=== PATIENT | male | born 1975 | race Caucasian/White ===

== ENCOUNTER 2019-11-28 11:25 | Inpatient (IN) | payer SELFPAY ==
[~2019-11-28] VITALS: Ht 182.9 cm; Wt 103.0 kg
[2019-11-28] MEDS ORDERED: ONDANSETRON PF 4 MG/2 ML VIAL. ONE (11:35)
[2019-11-28] MEDS ORDERED: IV NORMAL SALINE 1000ML BAG 1,000 ML IV ONE (11:45)
[2019-11-28 11:48] LABS: BASO # 0.1 x10^3/uL (0.0-0.2); BASO % 0 % (0-3); EOS # 0.2 x10^3/uL (0.0-0.7); EOS % 1 % (0-3); HEMATOCRIT 50.9 % (39.0-53.0); HEMOGLOBIN 17.1 g/dL (13.0-17.5); LYMPH # 4.7 x10^3/uL (1.0-4.8); LYMPH % 24 % (24-48); MEAN CORPUSCULAR HEMOGLOBIN 30 pg (25-35); MEAN CORPUSCULAR HGB CONC 34 g/dL (31-37); MEAN CORPUSCULAR VOLUME 90 fL (79-100); MONO # 1.4 x10^3/uL (0.0-1.1); MONO % 7 % (0-9); NEUT # 13.3 x10^3/uL (1.8-7.7); NEUT % 68 % (31-73); PLATELET COUNT 442 x10^3/uL (140-400); RED BLOOD COUNT 5.67 x10^6/uL (4.30-5.70); RED CELL DISTRIBUTION WIDTH 12.7 % (11.5-14.5); WHITE BLOOD COUNT 19.7 x10^3/uL (4.0-11.0)
[2019-11-28 12:00] LABS: PROTHROMBIN TIME PATIENT 13.9 SEC (11.7-14.0)
[2019-11-28] MEDS ORDERED: ONDANSETRON PF 4 MG/2 ML VIAL. IV ONE (12:00)
[2019-11-28 12:13] LABS: ANION GAP 27 (6-14); BLOOD UREA NITROGEN 22 mg/dL (8-26); BUN/CREATININE RATIO 14 (6-20); CALCIUM 9.5 mg/dL (8.5-10.1); CARBON DIOXIDE 14 mmol/L (21-32); CHLORIDE 96 mmol/L (98-107); CREATININE 1.6 mg/dL (0.7-1.3); GFR 47.6; GLUCOSE 193 mg/dL (70-99); POTASSIUM 3.8 mmol/L (3.5-5.1); SODIUM 137 mmol/L (136-145)
[2019-11-28] MEDS ORDERED: fentaNYL PF VIAL 100 MCG/2 ML VIAL IV ONE (12:15)
[2019-11-28 12:19] LABS: ALBUMIN 4.3 g/dL (3.4-5.0); ALBUMIN/GLOBULIN RATIO 1.1 (1.0-1.7); ALK PHOS 92 U/L (46-116); ALT (SGPT) 37 U/L (16-63); AST (SGOT) 26 U/L (15-37); CREATINE KINASE 242 U/L (39-308); MAGNESIUM 2.4 mg/dL (1.8-2.4); PHENY 0.9 mcg/mL (10.0-20.0); TOTAL BILIRUBIN 0.7 mg/dL (0.2-1.0); TOTAL PROTEIN 8.3 g/dL (6.4-8.2)
--- NOTE | 2019-11-28 12:39 | RAD ---
EXAM: Head CT without contrast; maxillofacial bone CT without contrast; cervical spine CT without contrast. HISTORY: Trauma. TECHNIQUE: Computed tomographic images of the head, maxillofacial bones and cervical spine were obtained without contrast. *One or more of the following individualized dose reduction techniques were utilized for this examination: 1. Automated exposure control. 2. Adjustment of the mA and/or kV according to patient size. 3. Use of iterative reconstruction technique. COMPARISON: None. FINDINGS: Head: There is no acute intracranial hemorrhage. There is no mass effect or midline shift. There is no hydrocephalus. The rodriguze-white matter differential pattern is intact. The mastoid air cells are clear. No calvarial lesion is seen. Maxillofacial bones: No fracture is seen. There is minimal maxillary sinus mucosal thickening. The nasal septum is midline. The ostiomeatal units are patent. The temporomandibular joints are intact. The orbits are unremarkable. Cervical spine: There is cervical curvature likely due to thoracic scoliosis. There is no significant listhesis. There is mild multilevel endplate remodeling and slight disc space narrowing at the mid and lower cervical levels. There is facet arthropathy at multiple levels. There is no fracture. There is mild right foraminal stenosis at C3-C4 and C4-C5. There is moderate to severe right foraminal stenosis at C5-C6. IMPRESSION: 1. No evidence of acute intracranial, maxillofacial bone or cervical spine trauma. 2. Multilevel degenerative change involving the cervical spine, resulting in stenosis as described above. Electronically signed by: Flor Dasilva MD (11/28/2019 12:36 PM) [facility]
[2019-11-28 13:21] LABS: % BANDS 2 % (0-9); % LYMPHS 22 % (24-48); % MONOS 5 % (0-10); % SEGS 71 % (35-66)
[2019-11-28 13:22] LABS: PLT ESTIMATE ADEQUATE (ADEQUATE)
--- NOTE | 2019-11-28 13:24 | RAD ---
SHOULDER 2+V RIGHT DATE: 11/28/2019 12:02 PM INDICATION: Trauma, shoulder pain COMPARISON: None. FINDINGS: Bones: Ossific fragment along the inferior margin of the glenoid, possibly a bony Bankart injury. Joints: Glenohumeral joint is congruent. Acromioclavicular joint is congruent. The acromiohumeral distance is not narrowed. Miscellaneous: No abnormal soft tissue calcifications in the shoulder. IMPRESSION: Ossific fragment along the inferior margin of the glenoid, possibly a bony Bankart injury. Glenohumeral joint is congruent. Electronically signed by: Kenan Shetty MD (11/28/2019 1:21 PM) [facility]
[2019-11-28] MEDS ORDERED: NORMAL SALINE IV ONE (14:00)
[2019-11-28] MEDS ORDERED: FOSPHENYTOIN IV ONE (14:00)
[2019-11-28 14:04] LABS: COLOR,URINE YELLOW
[2019-11-28 14:05] LABS: BILIRUBIN,URINE NEGATIVE (NEG); CLARITY,URINE HAZY; NITRITE,URINE NEGATIVE (NEG); PH,URINE 5.5 (<5.0-8.0); PROTEIN,URINE 30 mg/dL (NEG-TRACE); UROBILINOGEN,URINE 0.2 mg/dL (0.2 mg/dL)
[2019-11-28 14:06] LABS: BACTERIA,URINE 0 /HPF (0-FEW); RBC,URINE OCC /HPF (0-2); WBC,URINE OCC /HPF (0-4)
[2019-11-28 14:07] LABS: HYALINE CASTS, URINE OCCASIONAL /HPF
[2019-11-28] MEDS ORDERED: ACETAMINOPHEN 325 MG TABLET. PO PRN (14:15)
[2019-11-28] MEDS ORDERED: MULTIVIT INFUSN,ADULT 4,VIT K 10 ML, FOLIC ACID INJ 1 MG in IV NORMAL SALINE 1000ML BAG... IV ONE (14:15)
[2019-11-28] MEDS ORDERED: DOCUSATE SODIUM 100 MG CAPSULE. PO PRN (14:15)
[2019-11-28] MEDS ORDERED: guaiFENesin ORAL 200 MG/10 ML LIQUID. PO PRN (14:15)
[2019-11-28] MEDS ORDERED: ZOLPIDEM 5 MG TABLET. PO PRN (14:15)
[2019-11-28] MEDS ORDERED: ONDANSETRON PF 4 MG/2 ML VIAL. IV PRN (14:15)
[2019-11-28] MEDS ORDERED: ALBUTEROL SULFATE 2.5 MG/3 ML NEBU. NEB PRN (14:15)
[2019-11-28] MEDS ORDERED: levETIRAcetam 1,000 MG in IV DEXTROSE 5% 100ML 100 ML IV ONE (14:15)
[2019-11-28] MEDS ORDERED: THIAMINE 100 MG TABLET. PO ONE (14:15)
[2019-11-28] MEDS ORDERED: cloNIDine HCL 0.1 MG TABLET PO PRN (14:15)
--- NOTE | 2019-11-28 14:53 | PHYS DOC ---
Past Medical History Past Medical History: Seizure Past Surgical History: No Surgical History Additional Past Surgical Histo: UNKNOWN Smoking Status: Unknown if ever smoked Alcohol Use: None Additional Information: UNKNOWN Social History Narrative: UNKNOWN General Adult EDM: Chief Complaint: TRAUMA ALERT HPI: HPI: Patient is a 44-year-old male with a history of seizures and substance abuse. Apparently, he has been using meth daily for several days. He states he is almost been out of his seizure medication and only been taking it every few days. Apparently, he has been in a hotel room and at some point today hollered outside of the room that he needed help and collapsed to the ground. EMS arrived and he was seizing. In route here he had stopped seizing became a bit agitated. There is been no fever chills or sweats. History has been difficult to obtain because of his altered mental status. Patient does state that he fell onto his right shoulder and has a lot of pain in that area. He also hit his face and had some bleeding. [] Review of Systems: Review of Systems: Review of systems is as above otherwise unobtainable secondary to altered mental status Heart Score: Risk Factors: Risk Factors: DM, Current or recent (<one month) smoker, HTN, HLP, family histo ry of CAD, obesity. Risk Scores: Score 0 - 3: 2.5% MACE over next 6 weeks - Discharge Home Score 4 - 6: 20.3% MACE over next 6 weeks - Admit for Clinical Observation Score 7 - 10: 72.7% MACE over next 6 weeks - Early Invasive Strategies Current Medications: Current Medications Medications (Trade) Dose Ordered Sig/[facility] Start Time Stop Time Status Last Admin Dose Admin Acetaminophen (Tylenol) 650 mg PRN Q4HRS PRN 11/28/19 14:15 Albuterol Sulfate (Ventolin Neb Soln) 2.5 mg PRN Q4HRS PRN 11/28/19 14:15 Clonidine HCl (Catapres) 0.1 mg PRN Q6HRS PRN 11/28/19 14:15 Docusate Sodium (Colace) 100 mg PRN BID PRN 11/28/19 14:15 Enoxaparin Sodium (Lovenox 40mg Syringe) 40 mg Q24H 11/28/19 14:15 Fentanyl Citrate (Fentanyl 2ml Vial) 50 mcg 1X ONCE 11/28/19 12:15 11/28/19 12:16 DC 11/28/19 12:28 50 MCG Fosphenytoin Sodium 2040 mg/ Sodium Chloride 90.8 ml @ 363.2 mls/ hr 1X ONCE 11/28/19 14:00 11/28/19 14:14 DC Guaifenesin (Robitussin) 200 mg PRN Q4HRS PRN 11/28/19 14:15 Levetiracetam 1000 mg/Dextrose 110 ml @ 440 mls/hr 1X ONCE 11/28/19 14:15 11/28/19 14:32 DC Lorazepam (Ativan Inj) 2 mg PRN Q4HRS PRN 11/28/19 14:15 Multivitamins 10 ml/Folic Acid 1 mg/Sodium Chloride 1,010.2 ml @ 124.874 mls/hr 1X ONCE 11/28/19 14:15 11/28/19 22:20 Ondansetron HCl (Zofran) 4 mg PRN Q4HRS PRN 11/28/19 14:15 Sodium Chloride 1,000 ml @ 1,000 mls/hr 1X ONCE 11/28/19 11:45 11/28/19 12:44 DC 11/28/19 11:56 1,000 MLS/HR Thiamine Mononitrate (Vitamin B-1) 100 mg 1X ONCE 11/28/19 14:15 11/28/19 14:16 DC 11/28/19 14:27 100 MG Zolpidem Tartrate (Ambien) 5 mg PRN QHS PRN 11/28/19 14:15 Allergies: Allergies: Allergies Coded Allergies Type Severity Reaction Last Updated Verified No Known Drug Allergies 11/28/19 No Physical Exam: PE: Constitutional: Well developed, well nourished, appears in a postictal state [] HENT: Normocephalic, atraumatic, bilateral external ears normal, oropharynx moist, no oral exudates, nose normal. [] Eyes: PERRLA, EOMI, conjunctiva normal, no discharge. [] Neck: Normal range of motion, no tenderness, supple, no stridor. [] Cardiovascular:Heart rate regular rhythm, no murmur [] Lungs & Thorax: Bilateral breath sounds clear to auscultation [] Abdomen: Bowel sounds normal, soft, no tenderness, no masses, no pulsatile masses. [] Skin: Superficial abrasion to his right cheek [] Back: No tenderness, no CVA tenderness. [] Extremities: Tender to palp right shoulder decreased range of motion secondary to pain [] Neurologic: Agitated, normal motor function, normal sensory function, no focal deficits noted. [] Psychologic: Unable to assess. [] Current Patient Data: Labs: Laboratory Tests Test 11/28/19 11:30 11/28/19 13:30 11/28/19 13:37 White Blood Count 19.7 x10^3/uL (4.0-11.0) H Red Blood Count 5.67 x10^6/uL (4.30-5.70) Hemoglobin 17.1 g/dL (13.0-17.5) Hematocrit 50.9 % (39.0-53.0) Mean Corpuscular Volume 90 fL (79-100) Mean Corpuscular Hemoglobin 30 pg (25-35) Mean Corpuscular Hemoglobin Concent 34 g/dL (31-37) Red Cell Distribution Width 12.7 % (11.5-14.5) Platelet Count 442 x10^3/uL (140-400) H Neutrophils (%) (Auto) 68 % (31-73) Lymphocytes (%) (Auto) 24 % (24-48) Monocytes (%) (Auto) 7 % (0-9) Eosinophils (%) (Auto) 1 % (0-3) Basophils (%) (Auto) 0 % (0-3) Neutrophils # (Auto) 13.3 x10^3/uL (1.8-7.7) H Lymphocytes # (Auto) 4.7 x10^3/uL (1.0-4.8) Monocytes # (Auto) 1.4 x10^3/uL (0.0-1.1) H Eosinophils # (Auto) 0.2 x10^3/uL (0.0-0.7) Basophils # (Auto) 0.1 x10^3/uL (0.0-0.2) Segmented Neutrophils % 71 % (35-66) H Band Neutrophils % 2 % (0-9) Lymphocytes % 22 % (24-48) L Monocytes % 5 % (0-10) Platelet Estimate Adequate (ADEQUATE) Prothrombin Time 13.9 SEC (11.7-14.0) Prothrombin Time INR 1.1 (0.8-1.1) Sodium Level 137 mmol/L (136-145) Potassium Level 3.8 mmol/L (3.5-5.1) Chloride Level 96 mmol/L (98-107) L Carbon Dioxide Level 14 mmol/L (21-32) L Anion Gap 27 (6-14) H Blood Urea Nitrogen 22 mg/dL (8-26) Creatinine 1.6 mg/dL (0.7-1.3) H Estimated GFR (Cockcroft-Gault) 47.6 BUN/Creatinine Ratio 14 (6-20) Glucose Level 193 mg/dL (70-99) H Calcium Level 9.5 mg/dL (8.5-10.1) Magnesium Level 2.4 mg/dL (1.8-2.4) Total Bilirubin 0.7 mg/dL (0.2-1.0) Aspartate Amino Transferase (AST) 26 U/L (15-37) Alanine Aminotransferase (ALT) 37 U/L (16-63) Alkaline Phosphatase 92 U/L (46-116) Creatine Kinase 242 U/L (39-308) Total Protein 8.3 g/dL (6.4-8.2) H Albumin 4.3 g/dL (3.4-5.0) Albumin/Globulin Ratio 1.1 (1.0-1.7) Thyroid Stimulating Hormone (TSH) 3.658 uIU/mL (0.358-3.74) Phenytoin (Dilantin) Level 0.9 mcg/mL (10.0-20.0) L Phenytoin Last Dose Date 11/28/19 Phenytoin Last Dose Time 0700 Ethyl Alcohol Level < 10 mg/dL (0-10) Urine Collection Type U cath Urine Color Yellow Urine Clarity Hazy Urine pH 5.5 (<5.0-8.0) Urine Specific [place] 1.025 (1.000-1.030) Urine Protein 30 mg/dL (NEG-TRACE) Urine Glucose (UA) Negative mg/dL (NEG) Urine Ketones (Stick) Trace mg/dL (NEG) Urine Blood Small (NEG) Urine Nitrite Negative (NEG) Urine Bilirubin Negative (NEG) Urine Urobilinogen Dipstick 0.2 mg/dL (0.2 mg/dL) Urine Leukocyte Esterase Negative (NEG) Urine RBC Occ /HPF (0-2) Urine WBC Occ /HPF (0-4) Urine Bacteria 0 /HPF (0-FEW) Urine Hyaline Casts Occasional /HPF Urine Mucus Marked /LPF Lactic Acid Level 14.6 mmol/L (0.4-2.0) *H Laboratory Tests 11/28/19 11:30 Laboratory Tests 11/28/19 11:30 Vital Signs: Vital Signs Date Time Temp Pulse Resp B/P (MAP) Pulse Ox O2 Delivery O2 Flow Rate FiO2 11/28/19 11:25 98.8 115 16 122/71 (88) 94 Room Air 98.8 EKG: EKG: [] Radiology/Procedures: Radiology/Procedures: []PROCEDURE: SHOULDER 2+V RIGHT SHOULDER 2+V RIGHT DATE: 11/28/2019 12:02 PM INDICATION: Trauma, shoulder pain COMPARISON: None. FINDINGS: Bones: Ossific fragment along the inferior margin of the glenoid, possibly a bony Bankart injury. Joints: Glenohumeral joint is congruent. Acromioclavicular joint is congruent. The acromiohumeral distance is not narrowed. Miscellaneous: No abnormal soft tissue calcifications in the shoulder. IMPRESSION: Ossific fragment along the inferior margin of the glenoid, possibly a bony Bankart injury. Glenohumeral joint is congruent. Impression: PROCEDURE: CT HEAD AND MAXILLOFACIAL WO EXAM: Head CT without contrast; maxillofacial bone CT without contrast; cervical spine CT without contrast. HISTORY: Trauma. TECHNIQUE: Computed tomographic images of the head, maxillofacial bones and cervical spine were obtained without contrast. *One or more of the following individualized dose reduction techniques were utilized for this examination: 1. Automated exposure control. 2. Adjustment of the mA and/or kV according to patient size. 3. Use of iterative reconstruction technique. COMPARISON: None. FINDINGS: Head: There is no acute intracranial hemorrhage. There is no mass effect or midline shift. There is no hydrocephalus. The rodriguez-white matter differential pattern is intact. The mastoid air cells are clear. No calvarial lesion is seen. Maxillofacial bones: No fracture is seen. There is minimal maxillary sinus mucosal thickening. The nasal septum is midline. The ostiomeatal units are patent. The temporomandibular joints are intact. The orbits are unremarkable. Cervical spine: There is cervical curvature likely due to thoracic scoliosis. There is no significant listhesis. There is mild multilevel endplate remodeling and slight disc space narrowing at the mid and lower cervical levels. There is facet arthropathy at multiple levels. There is no fracture. There is mild right foraminal stenosis at C3-C4 and C4-C5. There is moderate to severe right foraminal stenosis at C5-C6. IMPRESSION: 1. No evidence of acute intracranial, maxillofacial bone or cervical spine trauma. 2. Multilevel degenerative change involving the cervical spine, resulting in stenosis as described above. Course & Med Decision Making: Course & Med Decision Making Pertinent Labs and Imaging studies reviewed. (See chart for details) [ED course: Evaluation reveals a 44-year-old male with IV drug abuse and seizure disorder. During his stay in the emergency department he again developed a generalized tonic-clonic seizure was given a total of 3 mg of Ativan the seizing stopped. He was then given Keppra 1000 mg IV. I spoke with the hospitalist who is agreed to accept the patient for admission. CRITICAL CARE: Time spent was 35 minutes. This includes medical management, evaluation, reevaluation, discussion with consultants and family. Critical Care does NOT include time spent on separately billed procedures.] Sally Disclaimer: Dragon Disclaimer: This electronic medical record was generated, in whole or in part, using a voice recognition dictation system. Departure Departure Impression: Primary Impression: Seizure Additional Impression: Methamphetamine abuse Disposition: ADMITTED INPATIENT Admitting Physician: FANY Condition: GUARDED Referrals: NO PCP (PCP) EMMETT HAJI DO November 28, 2019 14:52
[2019-11-28 15:15] VITALS: BP 154/83
--- NOTE | 2019-11-28 15:31 | PDOC1 ---
History and Physical Date of Admission Date of Admission 11/28/2019 Identification/Chief Complaint Chief Complaint Seizure disorder Source Source: Chart review, Patient History of Present Illness History of Present Illness Patient is a 44-year-old gentleman with past medical history of seizure disorder who was in his usual state of health until today when apparently staying at a local hotel patient came out of the hallways and screamed that he was about to have another seizure. Patient denies having changes to his medications recently, he denies illegal drug abuse, he denies changes in the dosage of medications, he denies recent infections and no recent sick contacts. No further history could be elicited since the patient is quite sedated from benzodiazepines administered in the emergency department to treat his seizure disorder. He fell from own height injuring his face and has blood dried over his facial features. Patient does not seem to have any fractures on imaging studies and is being admitted for further evaluation and treatment. He is resting comfortably on the stretcher in no apparent distress he was cooperative the brief instances when he managed to stay awake enough to answer some questions. ER history is as follows [id number] [place], [place] [phone] Emergency Room Patient: NOHEMI MCKEON Acct:[id number] Unit: [id number] : 1975 Loc: [address] [place] [address] Room/ Bed: 652-1 Age/Sex: 44 / M ADM Status: ADM IN ADM Date: 11/28/19 Past Medical History Past Medical History: Seizure Past Surgical History: No Surgical History Additional Past Surgical Histo: UNKNOWN Smoking Status: Unknown if ever smoked Alcohol Use: None Additional Information: UNKNOWN Social History Narrative: UNKNOWN General Adult EDM: Chief Complaint: TRAUMA ALERT HPI: HPI: Patient is a 44-year-old male with a history of seizures and substance abuse. Apparently, he has been using meth daily for several days. He states he is almost been out of his seizure medication and only been taking it every few days. Apparently, he has been in a hotel room and at some point today hollered outside of the room that he needed help and collapsed to the ground. EMS arrived and he was seizing. In route here he had stopped seizing became a bit agitated. There is been no fever chills or sweats. History has been difficult to obtain because of his altered mental status. Patient does state that he fell onto his right shoulder and has a lot of pain in that area. He also hit his face and had some bleeding. Past Medical History CENTRAL NERVOUS SYSTEM: Seizure Current Problem List Problem List Problems Medical Problems: (1) Methamphetamine abuse Status: Acute (2) Seizure Status: Acute Current Medications Current Medications Current Medications Medications (Trade) Dose Ordered Sig/[facility] Start Time Stop Time Status Last Admin Dose Admin Acetaminophen (Tylenol) 650 mg PRN Q4HRS PRN 11/28/19 14:15 Albuterol Sulfate (Ventolin Neb Soln) 2.5 mg PRN Q4HRS PRN 11/28/19 14:15 Clonidine HCl (Catapres) 0.1 mg PRN Q6HRS PRN 11/28/19 14:15 Docusate Sodium (Colace) 100 mg PRN BID PRN 11/28/19 14:15 Enoxaparin Sodium (Lovenox 40mg Syringe) 40 mg Q24H 11/28/19 14:15 Fentanyl Citrate (Fentanyl 2ml Vial) 50 mcg 1X ONCE 11/28/19 12:15 11/28/19 12:16 DC 11/28/19 12:28 50 MCG Fosphenytoin Sodium 2040 mg/ Sodium Chloride 90.8 ml @ 363.2 mls/ hr 1X ONCE 11/28/19 14:00 11/28/19 14:14 DC Guaifenesin (Robitussin) 200 mg PRN Q4HRS PRN 11/28/19 14:15 Levetiracetam 1000 mg/Dextrose 110 ml @ 440 mls/hr Q12HR 11/28/19 21:00 Lorazepam (Ativan Inj) 2 mg PRN Q4HRS PRN 11/28/19 14:15 Multivitamins 10 ml/Folic Acid 1 mg/Sodium Chloride 1,010.2 ml @ 124.874 mls/hr 1X ONCE 11/28/19 14:15 11/28/19 22:20 Ondansetron HCl (Zofran) 4 mg PRN Q4HRS PRN 11/28/19 14:15 Sodium Chloride 1,000 ml @ 1,000 mls/hr 1X ONCE 11/28/19 11:45 11/28/19 12:44 DC 11/28/19 11:56 1,000 MLS/HR Thiamine Mononitrate (Vitamin B-1) 100 mg 1X ONCE 11/28/19 14:15 11/28/19 14:16 DC 11/28/19 14:27 100 MG Zolpidem Tartrate (Ambien) 5 mg PRN QHS PRN 11/28/19 14:15 Allergies Allergies Allergies Coded Allergies Type Severity Reaction Last Updated Verified No Known Drug Allergies 11/28/19 No ROS Review of System CONSTITUTIONAL: No fever or chills EYES: No recent changes SKIN: No rash or itching CARDIOVASCULAR: No chest pain, syncope, palpitations, or edema RESPIRATORY: No SOB or cough GASTROINTESTINAL: No nausea, vomiting or abdominal pain NEUROLOGICAL: No headaches or weakness ENDOCRINE: No cold or heat intolerance GENITOURINARY: No urgency or frequency of urination MUSCULOSKELETAL: No back pain or joint pain LYMPHATICS: No enlarged lymph nodes PSYCHIATRIC: No anxiety or depression Somewhat unreliable due to the current sedation of the patient Physical Exam Physical Exam GEN.: No apparent distress. Alert and oriented. HEENT: Head is normocephalic, atraumatic NECK: Supple. LUNGS: Clear to auscultation. HEART: RRR, S1, S2 present. Peripheral pulses intact ABDOMEN: Soft, nontender. Positive bowel sounds. EXTREMITIES: Without any cyanosis. NEUROLOGIC: Normal speech, normal tone PSYCHIATRIC: Normal affect, normal mood. SKIN: No ulcerations Vitals Vitals Vital Signs Date Time Temp Pulse Resp B/P (MAP) Pulse Ox O2 Delivery O2 Flow Rate FiO2 11/28/19 11:25 98.8 115 16 122/71 (88) 94 Room Air 98.8 Labs Labs Laboratory Tests Test 11/28/19 11:30 11/28/19 13:30 11/28/19 13:37 White Blood Count 19.7 x10^3/uL (4.0-11.0) Red Blood Count 5.67 x10^6/uL (4.30-5.70) Hemoglobin 17.1 g/dL (13.0-17.5) Hematocrit 50.9 % (39.0-53.0) Mean Corpuscular Volume 90 fL (79-100) Mean Corpuscular Hemoglobin 30 pg (25-35) Mean Corpuscular Hemoglobin Concent 34 g/dL (31-37) Red Cell Distribution Width 12.7 % (11.5-14.5) Platelet Count 442 x10^3/uL (140-400) Neutrophils (%) (Auto) 68 % (31-73) Lymphocytes (%) (Auto) 24 % (24-48) Monocytes (%) (Auto) 7 % (0-9) Eosinophils (%) (Auto) 1 % (0-3) Basophils (%) (Auto) 0 % (0-3) Neutrophils # (Auto) 13.3 x10^3/uL (1.8-7.7) Lymphocytes # (Auto) 4.7 x10^3/uL (1.0-4.8) Monocytes # (Auto) 1.4 x10^3/uL (0.0-1.1) Eosinophils # (Auto) 0.2 x10^3/uL (0.0-0.7) Basophils # (Auto) 0.1 x10^3/uL (0.0-0.2) Segmented Neutrophils % 71 % (35-66) Band Neutrophils % 2 % (0-9) Lymphocytes % 22 % (24-48) Monocytes % 5 % (0-10) Platelet Estimate Adequate (ADEQUATE) Prothrombin Time 13.9 SEC (11.7-14.0) Prothromb Time International Ratio 1.1 (0.8-1.1) Sodium Level 137 mmol/L (136-145) Potassium Level 3.8 mmol/L (3.5-5.1) Chloride Level 96 mmol/L (98-107) Carbon Dioxide Level 14 mmol/L (21-32) Anion Gap 27 (6-14) Blood Urea Nitrogen 22 mg/dL (8-26) Creatinine 1.6 mg/dL (0.7-1.3) Estimated GFR (Cockcroft-Gault) 47.6 BUN/Creatinine Ratio 14 (6-20) Glucose Level 193 mg/dL (70-99) Calcium Level 9.5 mg/dL (8.5-10.1) Magnesium Level 2.4 mg/dL (1.8-2.4) Total Bilirubin 0.7 mg/dL (0.2-1.0) Aspartate Amino Transf (AST/SGOT) 26 U/L (15-37) Alanine Aminotransferase (ALT/SGPT) 37 U/L (16-63) Alkaline Phosphatase 92 U/L (46-116) Creatine Kinase 242 U/L (39-308) Total Protein 8.3 g/dL (6.4-8.2) Albumin 4.3 g/dL (3.4-5.0) Albumin/Globulin Ratio 1.1 (1.0-1.7) Thyroid Stimulating Hormone (TSH) 3.658 uIU/mL (0.358-3.74) Phenytoin (Dilantin) Level 0.9 mcg/mL (10.0-20.0) Phenytoin Last Dose Date 11/28/19 Phenytoin Last Dose Time 0700 Ethyl Alcohol Level < 10 mg/dL (0-10) Urine Collection Type U cath Urine Color Yellow Urine Clarity Hazy Urine pH 5.5 (<5.0-8.0) Urine Specific [place] 1.025 (1.000-1.030) Urine Protein 30 mg/dL (NEG-TRACE) Urine Glucose (UA) Negative mg/dL (NEG) Urine Ketones (Stick) Trace mg/dL (NEG) Urine Blood Small (NEG) Urine Nitrite Negative (NEG) Urine Bilirubin Negative (NEG) Urine Urobilinogen Dipstick 0.2 mg/dL (0.2 mg/dL) Urine Leukocyte Esterase Negative (NEG) Urine RBC Occ /HPF (0-2) Urine WBC Occ /HPF (0-4) Urine Bacteria 0 /HPF (0-FEW) Urine Hyaline Casts Occasional /HPF Urine Mucus Marked /LPF Lactic Acid Level 14.6 mmol/L (0.4-2.0) Laboratory Tests Test 11/28/19 11:30 11/28/19 13:30 11/28/19 13:37 White Blood Count 19.7 x10^3/uL (4.0-11.0) Red Blood Count 5.67 x10^6/uL (4.30-5.70) Hemoglobin 17.1 g/dL (13.0-17.5) Hematocrit 50.9 % (39.0-53.0) Mean Corpuscular Volume 90 fL (79-100) Mean Corpuscular Hemoglobin 30 pg (25-35) Mean Corpuscular Hemoglobin Concent 34 g/dL (31-37) Red Cell Distribution Width 12.7 % (11.5-14.5) Platelet Count 442 x10^3/uL (140-400) Neutrophils (%) (Auto) 68 % (31-73) Lymphocytes (%) (Auto) 24 % (24-48) Monocytes (%) (Auto) 7 % (0-9) Eosinophils (%) (Auto) 1 % (0-3) Basophils (%) (Auto) 0 % (0-3) Neutrophils # (Auto) 13.3 x10^3/uL (1.8-7.7) Lymphocytes # (Auto) 4.7 x10^3/uL (1.0-4.8) Monocytes # (Auto) 1.4 x10^3/uL (0.0-1.1) Eosinophils # (Auto) 0.2 x10^3/uL (0.0-0.7) Basophils # (Auto) 0.1 x10^3/uL (0.0-0.2) Segmented Neutrophils % 71 % (35-66) Band Neutrophils % 2 % (0-9) Lymphocytes % 22 % (24-48) Monocytes % 5 % (0-10) Platelet Estimate Adequate (ADEQUATE) Prothrombin Time 13.9 SEC (11.7-14.0) Prothromb Time International Ratio 1.1 (0.8-1.1) Sodium Level 137 mmol/L (136-145) Potassium Level 3.8 mmol/L (3.5-5.1) Chloride Level 96 mmol/L (98-107) Carbon Dioxide Level 14 mmol/L (21-32) Anion Gap 27 (6-14) Blood Urea Nitrogen 22 mg/dL (8-26) Creatinine 1.6 mg/dL (0.7-1.3) Estimated GFR (Cockcroft-Gault) 47.6 BUN/Creatinine Ratio 14 (6-20) Glucose Level 193 mg/dL (70-99) Calcium Level 9.5 mg/dL (8.5-10.1) Magnesium Level 2.4 mg/dL (1.8-2.4) Total Bilirubin 0.7 mg/dL (0.2-1.0) Aspartate Amino Transf (AST/SGOT) 26 U/L (15-37) Alanine Aminotransferase (ALT/SGPT) 37 U/L (16-63) Alkaline Phosphatase 92 U/L (46-116) Creatine Kinase 242 U/L (39-308) Total Protein 8.3 g/dL (6.4-8.2) Albumin 4.3 g/dL (3.4-5.0) Albumin/Globulin Ratio 1.1 (1.0-1.7) Thyroid Stimulating Hormone (TSH) 3.658 uIU/mL (0.358-3.74) Phenytoin (Dilantin) Level 0.9 mcg/mL (10.0-20.0) Phenytoin Last Dose Date 11/28/19 Phenytoin Last Dose Time 0700 Ethyl Alcohol Level < 10 mg/dL (0-10) Urine Collection Type U cath Urine Color Yellow Urine Clarity Hazy Urine pH 5.5 (<5.0-8.0) Urine Specific [place] 1.025 (1.000-1.030) Urine Protein 30 mg/dL (NEG-TRACE) Urine Glucose (UA) Negative mg/dL (NEG) Urine Ketones (Stick) Trace mg/dL (NEG) Urine Blood Small (NEG) Urine Nitrite Negative (NEG) Urine Bilirubin Negative (NEG) Urine Urobilinogen Dipstick 0.2 mg/dL (0.2 mg/dL) Urine Leukocyte Esterase Negative (NEG) Urine RBC Occ /HPF (0-2) Urine WBC Occ /HPF (0-4) Urine Bacteria 0 /HPF (0-FEW) Urine Hyaline Casts Occasional /HPF Urine Mucus Marked /LPF Lactic Acid Level 14.6 mmol/L (0.4-2.0) VTE Prophylaxis Ordered VTE Prophylaxis Devices: No VTE Pharmacological Prophylaxi: Yes Assessment/Plan Assessment/Plan Seizure disorder Leukocytosis most likely secondary to the above Postictal state High anion gap metabolic acidosis Elevated lactic acid most likely secondary to seizure disorder Hyperglycemia which might be a reactive hypoglycemia given the acute event Acute kidney injury vasomotor etiology most likely Plan Repeat lactic acid Repeat BMP at 5 We will give Keppra 1000 twice daily Resume home medications once available for review Further recommendations based on the clinical course Seizure precautions Low suspicion for sepsis process DVT prophylaxis with GARDENIA Mancia MD November 28, 2019 15:30
[2019-11-28 16:46] LABS: AMPHETAMINE/METHAMPHETAMINE POS (NEG); BARBITURATES NEG (NEG); BENZODIAZEPINES NEG (NEG)
[2019-11-28 16:47] LABS: CANNABINOIDS NEG (NEG); COCAINE NEG (NEG); METHADONE NEG (NEG); OPIATES NEG (NEG); PHENCYCLIDINE NEG (NEG)
[2019-11-28 17:13] LABS: CALCIUM 8.9 mg/dL (8.5-10.1); CREATININE 1.2 mg/dL (0.7-1.3); GFR 66.4; POTASSIUM 4.4 mmol/L (3.5-5.1)
[2019-11-28 17:17] VITALS: BP 201/111
[2019-11-28] MEDS ORDERED: IBUPROFEN 200 MG TABLET. PO ONE (17:30)
[2019-11-28] MEDS: ENOXAPARIN 40 MG/0.4 ML SYRINGE. SQ SCH (18:11)
[2019-11-28 19:00] VITALS: BP 147/83
--- NOTE | 2019-11-28 19:30 | CONS ---
DATE OF CONSULTATION: 11/28/2019 REFERRING PHYSICIAN: Omar Gayle MD REASON FOR CONSULTATION: Seizure. HISTORY OF PRESENT ILLNESS: The patient is a 44-year-old man who has had seizures since he was 18 years old. He periodically has breakthrough seizures often related to noncompliance. He admits that he used methamphetamine 2 days ago and stopped his Keppra. He is on Keppra monotherapy 500 mg twice a day for seizure prevention. It is not clear why he chooses to discontinue his Keppra at certain times. He states he uses methamphetamine about once per month. He denies any alcohol or other recreational drugs. He apparently had some seizures out of the hospital. A Keppra level was drawn, but is pending. He was given a load of 1000 mg of IV Keppra in the Emergency Room. I am evaluating him up on the floor of the hospital and he is postictal. He does complain of headache and right shoulder pain. He denies being sick with a fever. PAST MEDICAL HISTORY: 1. Seizure disorder from 18 years of age. 2. Methamphetamine abuse. ALLERGIES: No known allergies to drugs. MEDICATIONS PRIOR TO ADMISSION: Levetiracetam 500 mg twice per day. FAMILY HISTORY: He denies any diseases in his family. SOCIAL HISTORY: He is , but . He lives alone. He has children. He works for [employer]. He denies alcohol consumption. He does admit to methamphetamine usage. He denies other recreational drugs. REVIEW OF SYSTEMS: He does have headache. He often has headaches after seizures. He denies any change in vision or hearing. He is not aware of any cognitive loss. He has been eating and swallowing. He has not had shortness of breath, cough or cold. He has not had chest or abdominal pain. He has severe right shoulder pain. He has not had fever or rash. Denies any gastrointestinal or genitourinary complaint. Does not complain of numbness or focal weakness. Denies any psychiatric concerns. PHYSICAL EXAMINATION: VITAL SIGNS: The blood pressure was 122/71, pulse 115, respirations 16, temperature 98.8 degrees Fahrenheit. Oximetry was 94% on room air. GENERAL: He was sleepy, but would awaken and follow commands and answer questions. At times, the speech was mumbling, but if I stimulated him with tactile stimulation, he would be more responsive. If unstimulated, he would drift off. Attention and concentration was impaired. He was oriented to place. NEUROLOGIC: Examination of the cranial nerves revealed visual turner were full to confrontation. Extraocular movements were intact. The eyes were conjugate. Pursuit movements were smooth and saccadic eye movements were without dysmetria. Pupils were 3 mm. Facial sensation was intact. The muscles of mastication and facial expression were symmetric. Hearing was intact to finger rub. The palate arched symmetrically. Tongue was midline. Sternocleidomastoid and trapezius were symmetrically powerful. Muscle bulk and tone was normal. He could not move his right arm much due to severe right shoulder pain. Power was full in the left upper extremity and both legs. Reflexes 2/4 and symmetric in upper and lower extremities. Toes are downgoing. Coordination testing with [id number], [id number], fine motor and rapid movements was fair. Sensory exam was intact to light touch and nail bed pressure. Gait was not testable. NECK: Auscultation of the carotid arteries did not reveal a bruit. HEART: Rhythm is regular, without a murmur. EXTREMITIES: Peripheral pulses were symmetric in the hands and feet. Carotid pulses are 2/4 and symmetric. LABORATORY RESULTS: CBC was performed on 11/28/2019. The white blood cell count was elevated to 19.7. The hemoglobin, hematocrit was normal, but platelet count was elevated at 442. Chemistries were performed 11/28/2019. This revealed normal sodium and potassium. Chloride was low at 96 and CO2 low at 14. He had an anion gap of 27. BUN was normal at 22, but creatinine was elevated at 1.6 with a GFR that calculated at 47.6. Glucose was elevated at 193. Calcium and magnesium were normal. Liver enzymes were not elevated. Total protein was ___ elevated at 8.3 with albumin normal at 4.3. TSH was normal. Lactic acid was elevated at 14.6. Urine drug screen was positive for methamphetamine. Phenytoin was not detected. Levetiracetam level is pending. Urinalysis revealed trace ketones, small amount of blood and occasional white cells and red cells and occasional hyaline casts. PT/INR was 1.1. A right shoulder x-ray was performed and revealed an ossific fragment along the inferior margin of the glenoid possibly a bony [place] injury. Glenohumeral joint was congruent. No abnormal soft tissue calcification in the shoulder. CT scan of the head and face was performed 11/28/2019 and revealed no evidence of an acute intracranial process or maxillofacial bone or cervical spine trauma. There were mild degenerative changes involving the cervical spine resulting in stenosis. The stenosis referred to is only neural foraminal, not spinal cord. IMPRESSION: The patient is a 44-year-old man with a longstanding seizure disorder since he was 18 years old. He generally has breakthrough seizures associated with noncompliance. He used methamphetamine a few days ago and stopped taking his Keppra. He has had several breakthrough seizures which likely accounts for the elevated lactic acid and elevated white blood cell count. He has been given a load of Keppra and has had no further apparent seizure activity. Neurologic exam other than right shoulder injury was nonfocal. RECOMMENDATIONS: Currently, there is an order for Keppra 1000 mg IV twice per day. If he is more awake tomorrow, we can discontinue the IV Keppra and switch him back to his previous dosage of 500 mg twice a day. If he returns to his alert and awake status, he could potentially be dismissed tomorrow. He may need to be seen by orthopedic if the shoulder pain continues to be severe. RANI YBARRA MD DR: DEVIN/pilar JOB#: [id number] / [id number]
[2019-11-28] MEDS: levETIRAcetam 1,000 MG in IV DEXTROSE 5% 100ML 100 ML IV SCH (21:30)
[2019-11-28 23:00] VITALS: BP 134/79
[2019-11-29 03:00] VITALS: BP 114/67
[2019-11-29 07:15] VITALS: BP 123/73
[2019-11-29] MEDS: levETIRAcetam 1,000 MG in IV DEXTROSE 5% 100ML 100 ML IV SCH ×2 (10:27→21:21)
--- NOTE | 2019-11-29 11:08 | PDOC ---
PROGRESS NOTES Chief Complaint Chief Complaint Seizure disorder Leukocytosis most likely secondary to the above Postictal state High anion gap metabolic acidosis methamphetamine abuse BMI 31 Elevated lactic acid most likely secondary to acute seizure Hyperglycemia, reactive Acute kidney injury vasomotor etiology History of Present Illness History of Present Illness right shoulder pain, cannot move right arm, very lethargic still today, he was sleeping this AM until 11am and I had to awaken him start PT and OT, consult Ortho about the right shoulder, Radiol report was of possible bony injury Neuro following, will move chaya back to his home dosing, discharge limit er is he says he cannot move his right arm or walk Seizure precautions Vitals Vitals Vital Signs Date Time Temp Pulse Resp B/P (MAP) Pulse Ox O2 Delivery O2 Flow Rate FiO2 11/29/19 08:15 Room Air 11/29/19 07:15 98.2 75 18 123/73 (90) 96 98.2 Physical Exam Physical Exam cannot articulate his right shoulder, has decent right hand strength General: Alert, Cooperative, mild distress Heart: Normal S2 Lungs: Wheezing Extremities: No cyanosis, No edema Labs LABS Laboratory Tests Test 11/28/19 11:30 11/28/19 13:30 11/28/19 13:37 11/28/19 16:44 White Blood Count 19.7 x10^3/uL (4.0-11.0) Red Blood Count 5.67 x10^6/uL (4.30-5.70) Hemoglobin 17.1 g/dL (13.0-17.5) Hematocrit 50.9 % (39.0-53.0) Mean Corpuscular Volume 90 fL (79-100) Mean Corpuscular Hemoglobin 30 pg (25-35) Mean Corpuscular Hemoglobin Concent 34 g/dL (31-37) Red Cell Distribution Width 12.7 % (11.5-14.5) Platelet Count 442 x10^3/uL (140-400) Neutrophils (%) (Auto) 68 % (31-73) Lymphocytes (%) (Auto) 24 % (24-48) Monocytes (%) (Auto) 7 % (0-9) Eosinophils (%) (Auto) 1 % (0-3) Basophils (%) (Auto) 0 % (0-3) Neutrophils # (Auto) 13.3 x10^3/uL (1.8-7.7) Lymphocytes # (Auto) 4.7 x10^3/uL (1.0-4.8) Monocytes # (Auto) 1.4 x10^3/uL (0.0-1.1) Eosinophils # (Auto) 0.2 x10^3/uL (0.0-0.7) Basophils # (Auto) 0.1 x10^3/uL (0.0-0.2) Segmented Neutrophils % 71 % (35-66) Band Neutrophils % 2 % (0-9) Lymphocytes % 22 % (24-48) Monocytes % 5 % (0-10) Platelet Estimate Adequate (ADEQUATE) Prothrombin Time 13.9 SEC (11.7-14.0) Prothromb Time International Ratio 1.1 (0.8-1.1) Sodium Level 137 mmol/L (136-145) 137 mmol/L (136-145) Potassium Level 3.8 mmol/L (3.5-5.1) 4.4 mmol/L (3.5-5.1) Chloride Level 96 mmol/L (98-107) 102 mmol/L (98-107) Carbon Dioxide Level 14 mmol/L (21-32) 22 mmol/L (21-32) Anion Gap 27 (6-14) 13 (6-14) Blood Urea Nitrogen 22 mg/dL (8-26) 21 mg/dL (8-26) Creatinine 1.6 mg/dL (0.7-1.3) 1.2 mg/dL (0.7-1.3) Estimated GFR (Cockcroft-Gault) 47.6 66.4 BUN/Creatinine Ratio 14 (6-20) Glucose Level 193 mg/dL (70-99) 131 mg/dL (70-99) Calcium Level 9.5 mg/dL (8.5-10.1) 8.9 mg/dL (8.5-10.1) Magnesium Level 2.4 mg/dL (1.8-2.4) Total Bilirubin 0.7 mg/dL (0.2-1.0) Aspartate Amino Transf (AST/SGOT) 26 U/L (15-37) Alanine Aminotransferase (ALT/SGPT) 37 U/L (16-63) Alkaline Phosphatase 92 U/L (46-116) Creatine Kinase 242 U/L (39-308) Total Protein 8.3 g/dL (6.4-8.2) Albumin 4.3 g/dL (3.4-5.0) Albumin/Globulin Ratio 1.1 (1.0-1.7) Thyroid Stimulating Hormone (TSH) 3.658 uIU/mL (0.358-3.74) Phenytoin (Dilantin) Level 0.9 mcg/mL (10.0-20.0) Phenytoin Last Dose Date 11/28/19 Phenytoin Last Dose Time 0700 Ethyl Alcohol Level < 10 mg/dL (0-10) Urine Collection Type U cath Urine Color Yellow Urine Clarity Hazy Urine pH 5.5 (<5.0-8.0) Urine Specific [place] 1.025 (1.000-1.030) Urine Protein 30 mg/dL (NEG-TRACE) Urine Glucose (UA) Negative mg/dL (NEG) Urine Ketones (Stick) Trace mg/dL (NEG) Urine Blood Small (NEG) Urine Nitrite Negative (NEG) Urine Bilirubin Negative (NEG) Urine Urobilinogen Dipstick 0.2 mg/dL (0.2 mg/dL) Urine Leukocyte Esterase Negative (NEG) Urine RBC Occ /HPF (0-2) Urine WBC Occ /HPF (0-4) Urine Bacteria 0 /HPF (0-FEW) Urine Hyaline Casts Occasional /HPF Urine Mucus Marked /LPF Urine Opiates Screen Neg (NEG) Urine Methadone Screen Neg (NEG) Urine Barbiturates Neg (NEG) Urine Phencyclidine Screen Neg (NEG) Urine Amphetamine/Methamphetamine Pos (NEG) Urine Benzodiazepines Screen Neg (NEG) Urine Cocaine Screen Neg (NEG) Urine Cannabinoids Screen Neg (NEG) Urine Ethyl Alcohol Neg (NEG) Lactic Acid Level 14.6 mmol/L (0.4-2.0) Test 11/28/19 19:00 Lactic Acid Level 1.0 mmol/L (0.4-2.0) Assessment and Plan Assessmemt and Plan Problems Medical Problems: (1) Methamphetamine abuse Status: Acute (2) Seizure Status: Acute Comment Review of Relevant I have reviewed the following items mario (where applicable) has been applied. Labs Laboratory Tests Test 11/28/19 11:30 11/28/19 13:30 11/28/19 13:37 11/28/19 16:44 White Blood Count 19.7 x10^3/uL (4.0-11.0) Red Blood Count 5.67 x10^6/uL (4.30-5.70) Hemoglobin 17.1 g/dL (13.0-17.5) Hematocrit 50.9 % (39.0-53.0) Mean Corpuscular Volume 90 fL (79-100) Mean Corpuscular Hemoglobin 30 pg (25-35) Mean Corpuscular Hemoglobin Concent 34 g/dL (31-37) Red Cell Distribution Width 12.7 % (11.5-14.5) Platelet Count 442 x10^3/uL (140-400) Neutrophils (%) (Auto) 68 % (31-73) Lymphocytes (%) (Auto) 24 % (24-48) Monocytes (%) (Auto) 7 % (0-9) Eosinophils (%) (Auto) 1 % (0-3) Basophils (%) (Auto) 0 % (0-3) Neutrophils # (Auto) 13.3 x10^3/uL (1.8-7.7) Lymphocytes # (Auto) 4.7 x10^3/uL (1.0-4.8) Monocytes # (Auto) 1.4 x10^3/uL (0.0-1.1) Eosinophils # (Auto) 0.2 x10^3/uL (0.0-0.7) Basophils # (Auto) 0.1 x10^3/uL (0.0-0.2) Segmented Neutrophils % 71 % (35-66) Band Neutrophils % 2 % (0-9) Lymphocytes % 22 % (24-48) Monocytes % 5 % (0-10) Platelet Estimate Adequate (ADEQUATE) Prothrombin Time 13.9 SEC (11.7-14.0) Prothromb Time International Ratio 1.1 (0.8-1.1) Sodium Level 137 mmol/L (136-145) 137 mmol/L (136-145) Potassium Level 3.8 mmol/L (3.5-5.1) 4.4 mmol/L (3.5-5.1) Chloride Level 96 mmol/L (98-107) 102 mmol/L (98-107) Carbon Dioxide Level 14 mmol/L (21-32) 22 mmol/L (21-32) Anion Gap 27 (6-14) 13 (6-14) Blood Urea Nitrogen 22 mg/dL (8-26) 21 mg/dL (8-26) Creatinine 1.6 mg/dL (0.7-1.3) 1.2 mg/dL (0.7-1.3) Estimated GFR (Cockcroft-Gault) 47.6 66.4 BUN/Creatinine Ratio 14 (6-20) Glucose Level 193 mg/dL (70-99) 131 mg/dL (70-99) Calcium Level 9.5 mg/dL (8.5-10.1) 8.9 mg/dL (8.5-10.1) Magnesium Level 2.4 mg/dL (1.8-2.4) Total Bilirubin 0.7 mg/dL (0.2-1.0) Aspartate Amino Transf (AST/SGOT) 26 U/L (15-37) Alanine Aminotransferase (ALT/SGPT) 37 U/L (16-63) Alkaline Phosphatase 92 U/L (46-116) Creatine Kinase 242 U/L (39-308) Total Protein 8.3 g/dL (6.4-8.2) Albumin 4.3 g/dL (3.4-5.0) Albumin/Globulin Ratio 1.1 (1.0-1.7) Thyroid Stimulating Hormone (TSH) 3.658 uIU/mL (0.358-3.74) Phenytoin (Dilantin) Level 0.9 mcg/mL (10.0-20.0) Phenytoin Last Dose Date 11/28/19 Phenytoin Last Dose Time 0700 Ethyl Alcohol Level < 10 mg/dL (0-10) Urine Collection Type U cath Urine Color Yellow Urine Clarity Hazy Urine pH 5.5 (<5.0-8.0) Urine Specific [place] 1.025 (1.000-1.030) Urine Protein 30 mg/dL (NEG-TRACE) Urine Glucose (UA) Negative mg/dL (NEG) Urine Ketones (Stick) Trace mg/dL (NEG) Urine Blood Small (NEG) Urine Nitrite Negative (NEG) Urine Bilirubin Negative (NEG) Urine Urobilinogen Dipstick 0.2 mg/dL (0.2 mg/dL) Urine Leukocyte Esterase Negative (NEG) Urine RBC Occ /HPF (0-2) Urine WBC Occ /HPF (0-4) Urine Bacteria 0 /HPF (0-FEW) Urine Hyaline Casts Occasional /HPF Urine Mucus Marked /LPF Urine Opiates Screen Neg (NEG) Urine Methadone Screen Neg (NEG) Urine Barbiturates Neg (NEG) Urine Phencyclidine Screen Neg (NEG) Urine Amphetamine/Methamphetamine Pos (NEG) Urine Benzodiazepines Screen Neg (NEG) Urine Cocaine Screen Neg (NEG) Urine Cannabinoids Screen Neg (NEG) Urine Ethyl Alcohol Neg (NEG) Lactic Acid Level 14.6 mmol/L (0.4-2.0) Test 11/28/19 19:00 Lactic Acid Level 1.0 mmol/L (0.4-2.0) Laboratory Tests Test 11/28/19 11:30 11/28/19 13:30 11/28/19 13:37 11/28/19 16:44 White Blood Count 19.7 x10^3/uL (4.0-11.0) Red Blood Count 5.67 x10^6/uL (4.30-5.70) Hemoglobin 17.1 g/dL (13.0-17.5) Hematocrit 50.9 % (39.0-53.0) Mean Corpuscular Volume 90 fL (79-100) Mean Corpuscular Hemoglobin 30 pg (25-35) Mean Corpuscular Hemoglobin Concent 34 g/dL (31-37) Red Cell Distribution Width 12.7 % (11.5-14.5) Platelet Count 442 x10^3/uL (140-400) Neutrophils (%) (Auto) 68 % (31-73) Lymphocytes (%) (Auto) 24 % (24-48) Monocytes (%) (Auto) 7 % (0-9) Eosinophils (%) (Auto) 1 % (0-3) Basophils (%) (Auto) 0 % (0-3) Neutrophils # (Auto) 13.3 x10^3/uL (1.8-7.7) Lymphocytes # (Auto) 4.7 x10^3/uL (1.0-4.8) Monocytes # (Auto) 1.4 x10^3/uL (0.0-1.1) Eosinophils # (Auto) 0.2 x10^3/uL (0.0-0.7) Basophils # (Auto) 0.1 x10^3/uL (0.0-0.2) Segmented Neutrophils % 71 % (35-66) Band Neutrophils % 2 % (0-9) Lymphocytes % 22 % (24-48) Monocytes % 5 % (0-10) Platelet Estimate Adequate (ADEQUATE) Prothrombin Time 13.9 SEC (11.7-14.0) Prothromb Time International Ratio 1.1 (0.8-1.1) Sodium Level 137 mmol/L (136-145) 137 mmol/L (136-145) Potassium Level 3.8 mmol/L (3.5-5.1) 4.4 mmol/L (3.5-5.1) Chloride Level 96 mmol/L (98-107) 102 mmol/L (98-107) Carbon Dioxide Level 14 mmol/L (21-32) 22 mmol/L (21-32) Anion Gap 27 (6-14) 13 (6-14) Blood Urea Nitrogen 22 mg/dL (8-26) 21 mg/dL (8-26) Creatinine 1.6 mg/dL (0.7-1.3) 1.2 mg/dL (0.7-1.3) Estimated GFR (Cockcroft-Gault) 47.6 66.4 BUN/Creatinine Ratio 14 (6-20) Glucose Level 193 mg/dL (70-99) 131 mg/dL (70-99) Calcium Level 9.5 mg/dL (8.5-10.1) 8.9 mg/dL (8.5-10.1) Magnesium Level 2.4 mg/dL (1.8-2.4) Total Bilirubin 0.7 mg/dL (0.2-1.0) Aspartate Amino Transf (AST/SGOT) 26 U/L (15-37) Alanine Aminotransferase (ALT/SGPT) 37 U/L (16-63) Alkaline Phosphatase 92 U/L (46-116) Creatine Kinase 242 U/L (39-308) Total Protein 8.3 g/dL (6.4-8.2) Albumin 4.3 g/dL (3.4-5.0) Albumin/Globulin Ratio 1.1 (1.0-1.7) Thyroid Stimulating Hormone (TSH) 3.658 uIU/mL (0.358-3.74) Phenytoin (Dilantin) Level 0.9 mcg/mL (10.0-20.0) Phenytoin Last Dose Date 11/28/19 Phenytoin Last Dose Time 0700 Ethyl Alcohol Level < 10 mg/dL (0-10) Urine Collection Type U cath Urine Color Yellow Urine Clarity Hazy Urine pH 5.5 (<5.0-8.0) Urine Specific [place] 1.025 (1.000-1.030) Urine Protein 30 mg/dL (NEG-TRACE) Urine Glucose (UA) Negative mg/dL (NEG) Urine Ketones (Stick) Trace mg/dL (NEG) Urine Blood Small (NEG) Urine Nitrite Negative (NEG) Urine Bilirubin Negative (NEG) Urine Urobilinogen Dipstick 0.2 mg/dL (0.2 mg/dL) Urine Leukocyte Esterase Negative (NEG) Urine RBC Occ /HPF (0-2) Urine WBC Occ /HPF (0-4) Urine Bacteria 0 /HPF (0-FEW) Urine Hyaline Casts Occasional /HPF Urine Mucus Marked /LPF Urine Opiates Screen Neg (NEG) Urine Methadone Screen Neg (NEG) Urine Barbiturates Neg (NEG) Urine Phencyclidine Screen Neg (NEG) Urine Amphetamine/Methamphetamine Pos (NEG) Urine Benzodiazepines Screen Neg (NEG) Urine Cocaine Screen Neg (NEG) Urine Cannabinoids Screen Neg (NEG) Urine Ethyl Alcohol Neg (NEG) Lactic Acid Level 14.6 mmol/L (0.4-2.0) Test 11/28/19 19:00 Lactic Acid Level 1.0 mmol/L (0.4-2.0) Medications Current Medications Ondansetron HCl (Zofran) 4 mg STK-MED ONCE .ROUTE ; Start 11/28/19 at 11:35; Stop 11/28/19 at 11:36; Status DC Sodium Chloride 1,000 ml @ 1,000 mls/hr 1X ONCE IV Last administered on 11/28/19at 11:56; Start 11/28/19 at 11:45; Stop 11/28/19 at 12:44; Status DC Ondansetron HCl (Zofran) 4 mg 1X ONCE IV Last administered on 11/28/19at 12:00; Start 11/28/19 at 12:00; Stop 11/28/19 at 12:01; Status DC Fentanyl Citrate (Fentanyl 2ml Vial) 50 mcg 1X ONCE IV Last administered on 11/28/19at 12:28; Start 11/28/19 at 12:15; Stop 11/28/19 at 12:16; Status DC Lorazepam (Ativan Inj) 2 mg STK-MED ONCE .ROUTE ; Start 11/28/19 at 13:18; Stop 11/28/19 at 13:18; Status DC Lorazepam (Ativan Inj) 2 mg 1X ONCE IV Last administered on 11/28/19at 13:19; Start 11/28/19 at 13:30; Stop 11/28/19 at 13:31; Status DC Lorazepam (Ativan Inj) 1 mg 1X ONCE IV ; Start 11/28/19 at 14:00; Stop 11/28/19 at 14:01; Status DC Fosphenytoin Sodium 2040 mg/ Sodium Chloride 90.8 ml @ 363.2 mls/ hr 1X ONCE IV ; Start 11/28/19 at 14:00; Stop 11/28/19 at 14:14; Status DC Multivitamins 10 ml/Folic Acid 1 mg/Sodium Chloride 1,010.2 ml @ 124.874 mls/hr 1X ONCE IV Last administered on 11/28/19at 16:18; Start 11/28/19 at 14:15; Stop 11/28/19 at 22:20; Status DC Ondansetron HCl (Zofran) 4 mg PRN Q4HRS PRN IV NAUSEA/VOMITING; Start 11/28/19 at 14:15 Zolpidem Tartrate (Ambien) 5 mg PRN QHS PRN PO INSOMNIA; Start 11/28/19 at 14:15 Acetaminophen (Tylenol) 650 mg PRN Q4HRS PRN PO TEMP OVER 100.4F OR MILD PAIN; Start 11/28/19 at 14:15; Stop 11/28/19 at 17:25; Status DC Clonidine HCl (Catapres) 0.1 mg PRN Q6HRS PRN PO SBP>160 OR DBP>90; Start 11/28/19 at 14:15 Docusate Sodium (Colace) 100 mg PRN BID PRN PO CONSTIPATION; Start 11/28/19 at 14:15 Albuterol Sulfate (Ventolin Neb Soln) 2.5 mg PRN Q4HRS PRN NEB SHORTNESS OF BREATH; Start 11/28/19 at 14:15 Guaifenesin (Robitussin) 200 mg PRN Q4HRS PRN PO COUGH; Start 11/28/19 at 14:15 Lorazepam (Ativan Inj) 2 mg PRN Q4HRS PRN IV ANXIETY / AGITATION; Start 11/28/19 at 14:15 Enoxaparin Sodium (Lovenox 40mg Syringe) 40 mg Q24H SQ Last administered on 11/28/19at 18:11; Start 11/28/19 at 14:15 Thiamine Mononitrate (Vitamin B-1) 100 mg 1X ONCE PO Last administered on 11/28/19at 14:27; Start 11/28/19 at 14:15; Stop 11/28/19 at 14:16; Status DC Levetiracetam 1000 mg/Dextrose 110 ml @ 440 mls/hr 1X ONCE IV Last administered on 11/28/19at 16:16; Start 11/28/19 at 14:15; Stop 11/28/19 at 14:32; Status DC Levetiracetam 1000 mg/Dextrose 110 ml @ 440 mls/hr Q12HR IV Last administered on 11/29/19at 10:27; Start 11/28/19 at 21:00 Ibuprofen (Motrin) 600 mg 1X ONCE PO Last administered on 11/28/19at 18:09; Start 11/28/19 at 17:30; Stop 11/28/19 at 17:31; Status DC Acetaminophen (Tylenol) 650 mg PRN Q4HRS PRN PO PAIN; Start 11/28/19 at 17:30 Vitals/I & O Vital Sign - Last 24 Hours 11/28/19 11/28/19 11/28/19 11/28/19 11:25 11:35 11:50 12:05 Temp 98.8 98.8 Pulse 115 121 116 114 Resp 16 20 22 22 B/P (MAP) 122/71 (88) 126/77 (93) 122/71 (88) 117/72 (87) Pulse Ox 94 96 96 96 O2 Delivery Room Air Room Air Room Air Room Air 11/28/19 11/28/19 11/28/19 11/28/19 12:15 12:30 12:45 13:15 Pulse 119 105 101 99 Resp 18 18 18 18 B/P (MAP) 122/78 (93) 115/65 (82) 125/68 (87) 122/64 (83) Pulse Ox 95 95 96 96 O2 Delivery Room Air Room Air Room Air Room Air 11/28/19 11/28/19 11/28/19 11/28/19 13:45 14:15 14:40 15:15 Temp 98.2 98.2 Pulse 98 93 90 100 Resp 18 18 16 18 B/P (MAP) 116/68 (84) 117/70 (86) 114/68 (83) 154/83 (106) Pulse Ox 96 96 96 96 O2 Delivery Room Air Room Air Room Air Room Air 11/28/19 11/28/19 11/28/19 11/28/19 17:17 19:00 20:00 23:00 Temp 98.3 99.1 98.9 98.3 99.1 98.9 Pulse 88 87 80 Resp 22 22 22 B/P (MAP) 201/111 (141) 147/83 (104) 134/79 (97) Pulse Ox 98 97 96 O2 Delivery Room Air Room Air Room Air Room Air 11/29/19 11/29/19 11/29/19 03:00 07:15 08:15 Temp 98.9 98.2 98.9 98.2 Pulse 81 75 Resp 19 18 B/P (MAP) 114/67 (83) 123/73 (90) Pulse Ox 95 96 O2 Delivery Room Air Room Air Room Air Intake and Output 11/28/19 11/28/19 11/29/19 15:00 23:00 07:00 Intake Total 0 ml 0 ml Output Total 1 ml Balance -1 ml 0 ml NEIL REYNA MD November 29, 2019 11:06
[2019-11-29 11:20] VITALS: BP 110/61
[2019-11-29] MEDS: ENOXAPARIN 40 MG/0.4 ML SYRINGE. SQ SCH (13:17)
[2019-11-29 15:29] VITALS: BP 105/62
--- NOTE | 2019-11-29 18:09 | PDOC ---
PROGRESS NOTES Assessment 1. Seizure disorder, noncompliant with medications and methamphetamine abuse with recurrent seizure. None further since he has been hospitalized. 2. He is more alert although continues to be somewhat sleepy. He states that usually takes him a few days to get over the seizures before he is thinking normally again. 3. He continues to have severe right shoulder pain limiting mobility. He awaits consultation from orthopedics Plan 1. Continue with Keppra 500 mg p.o. twice per day. 2. He may be dismissed from a neurologic perspective when medically stable and the right shoulder is addressed. Subjective My right arm still hurts a lot. I really cannot move my right shoulder. I have not seen the orthopedic person. It usually takes me a few days to feel back to normal after having seizures. I was able to walk to the bathroom with the help of the nurse. Objective Vital Signs Date Time Temp Pulse Resp B/P (MAP) Pulse Ox O2 Delivery O2 Flow Rate FiO2 11/29/19 15:29 97.5 79 18 105/62 (76) 96 Room Air 97.5 Intake and Output 11/29/19 06:59 Intake Total 0 ml Output Total 1 ml Balance -1 ml Intake Oral 0 ml Output Urine Total 1 ml PHYSICAL EXAM He appeared somewhat sleepy but was more responsive than yesterday. He was oriented to place but not month or year. He was responsive to questions and followed commands. The eyes were conjugate and face symmetric. Strength was normal in the legs and in the left arm. He had good research physician, wrist extension and flexion and finger abduction. Any movement of the right shoulder was extremely painful. Review of Relevant I have reviewed the following items mraio (where applicable) has been applied. Labs Laboratory Tests Test 11/28/19 11:30 11/28/19 13:30 11/28/19 13:37 11/28/19 16:44 White Blood Count 19.7 x10^3/uL (4.0-11.0) Red Blood Count 5.67 x10^6/uL (4.30-5.70) Hemoglobin 17.1 g/dL (13.0-17.5) Hematocrit 50.9 % (39.0-53.0) Mean Corpuscular Volume 90 fL (79-100) Mean Corpuscular Hemoglobin 30 pg (25-35) Mean Corpuscular Hemoglobin Concent 34 g/dL (31-37) Red Cell Distribution Width 12.7 % (11.5-14.5) Platelet Count 442 x10^3/uL (140-400) Neutrophils (%) (Auto) 68 % (31-73) Lymphocytes (%) (Auto) 24 % (24-48) Monocytes (%) (Auto) 7 % (0-9) Eosinophils (%) (Auto) 1 % (0-3) Basophils (%) (Auto) 0 % (0-3) Neutrophils # (Auto) 13.3 x10^3/uL (1.8-7.7) Lymphocytes # (Auto) 4.7 x10^3/uL (1.0-4.8) Monocytes # (Auto) 1.4 x10^3/uL (0.0-1.1) Eosinophils # (Auto) 0.2 x10^3/uL (0.0-0.7) Basophils # (Auto) 0.1 x10^3/uL (0.0-0.2) Segmented Neutrophils % 71 % (35-66) Band Neutrophils % 2 % (0-9) Lymphocytes % 22 % (24-48) Monocytes % 5 % (0-10) Platelet Estimate Adequate (ADEQUATE) Prothrombin Time 13.9 SEC (11.7-14.0) Prothromb Time International Ratio 1.1 (0.8-1.1) Sodium Level 137 mmol/L (136-145) 137 mmol/L (136-145) Potassium Level 3.8 mmol/L (3.5-5.1) 4.4 mmol/L (3.5-5.1) Chloride Level 96 mmol/L (98-107) 102 mmol/L (98-107) Carbon Dioxide Level 14 mmol/L (21-32) 22 mmol/L (21-32) Anion Gap 27 (6-14) 13 (6-14) Blood Urea Nitrogen 22 mg/dL (8-26) 21 mg/dL (8-26) Creatinine 1.6 mg/dL (0.7-1.3) 1.2 mg/dL (0.7-1.3) Estimated GFR (Cockcroft-Gault) 47.6 66.4 BUN/Creatinine Ratio 14 (6-20) Glucose Level 193 mg/dL (70-99) 131 mg/dL (70-99) Calcium Level 9.5 mg/dL (8.5-10.1) 8.9 mg/dL (8.5-10.1) Magnesium Level 2.4 mg/dL (1.8-2.4) Total Bilirubin 0.7 mg/dL (0.2-1.0) Aspartate Amino Transf (AST/SGOT) 26 U/L (15-37) Alanine Aminotransferase (ALT/SGPT) 37 U/L (16-63) Alkaline Phosphatase 92 U/L (46-116) Creatine Kinase 242 U/L (39-308) Total Protein 8.3 g/dL (6.4-8.2) Albumin 4.3 g/dL (3.4-5.0) Albumin/Globulin Ratio 1.1 (1.0-1.7) Thyroid Stimulating Hormone (TSH) 3.658 uIU/mL (0.358-3.74) Phenytoin (Dilantin) Level 0.9 mcg/mL (10.0-20.0) Phenytoin Last Dose Date 11/28/19 Phenytoin Last Dose Time 0700 Ethyl Alcohol Level < 10 mg/dL (0-10) Urine Collection Type U cath Urine Color Yellow Urine Clarity Hazy Urine pH 5.5 (<5.0-8.0) Urine Specific [place] 1.025 (1.000-1.030) Urine Protein 30 mg/dL (NEG-TRACE) Urine Glucose (UA) Negative mg/dL (NEG) Urine Ketones (Stick) Trace mg/dL (NEG) Urine Blood Small (NEG) Urine Nitrite Negative (NEG) Urine Bilirubin Negative (NEG) Urine Urobilinogen Dipstick 0.2 mg/dL (0.2 mg/dL) Urine Leukocyte Esterase Negative (NEG) Urine RBC Occ /HPF (0-2) Urine WBC Occ /HPF (0-4) Urine Bacteria 0 /HPF (0-FEW) Urine Hyaline Casts Occasional /HPF Urine Mucus Marked /LPF Urine Opiates Screen Neg (NEG) Urine Methadone Screen Neg (NEG) Urine Barbiturates Neg (NEG) Urine Phencyclidine Screen Neg (NEG) Urine Amphetamine/Methamphetamine Pos (NEG) Urine Benzodiazepines Screen Neg (NEG) Urine Cocaine Screen Neg (NEG) Urine Cannabinoids Screen Neg (NEG) Urine Ethyl Alcohol Neg (NEG) Lactic Acid Level 14.6 mmol/L (0.4-2.0) Test 11/28/19 19:00 Lactic Acid Level 1.0 mmol/L (0.4-2.0) Laboratory Tests Test 11/28/19 19:00 Lactic Acid Level 1.0 mmol/L (0.4-2.0) Medications Current Medications Ondansetron HCl (Zofran) 4 mg STK-MED ONCE .ROUTE ; Start 11/28/19 at 11:35; Stop 11/28/19 at 11:36; Status DC Sodium Chloride 1,000 ml @ 1,000 mls/hr 1X ONCE IV Last administered on 11/28/19at 11:56; Start 11/28/19 at 11:45; Stop 11/28/19 at 12:44; Status DC Ondansetron HCl (Zofran) 4 mg 1X ONCE IV Last administered on 11/28/19at 12:00; Start 11/28/19 at 12:00; Stop 11/28/19 at 12:01; Status DC Fentanyl Citrate (Fentanyl 2ml Vial) 50 mcg 1X ONCE IV Last administered on 11/28/19at 12:28; Start 11/28/19 at 12:15; Stop 11/28/19 at 12:16; Status DC Lorazepam (Ativan Inj) 2 mg STK-MED ONCE .ROUTE ; Start 11/28/19 at 13:18; Stop 11/28/19 at 13:18; Status DC Lorazepam (Ativan Inj) 2 mg 1X ONCE IV Last administered on 11/28/19at 13:19; Start 11/28/19 at 13:30; Stop 11/28/19 at 13:31; Status DC Lorazepam (Ativan Inj) 1 mg 1X ONCE IV ; Start 11/28/19 at 14:00; Stop 11/28/19 at 14:01; Status DC Fosphenytoin Sodium 2040 mg/ Sodium Chloride 90.8 ml @ 363.2 mls/ hr 1X ONCE IV ; Start 11/28/19 at 14:00; Stop 11/28/19 at 14:14; Status DC Multivitamins 10 ml/Folic Acid 1 mg/Sodium Chloride 1,010.2 ml @ 124.874 mls/hr 1X ONCE IV Last administered on 11/28/19at 16:18; Start 11/28/19 at 14:15; Stop 11/28/19 at 22:20; Status DC Ondansetron HCl (Zofran) 4 mg PRN Q4HRS PRN IV NAUSEA/VOMITING; Start 11/28/19 at 14:15 Zolpidem Tartrate (Ambien) 5 mg PRN QHS PRN PO INSOMNIA; Start 11/28/19 at 14:15 Acetaminophen (Tylenol) 650 mg PRN Q4HRS PRN PO TEMP OVER 100.4F OR MILD PAIN; Start 11/28/19 at 14:15; Stop 11/28/19 at 17:25; Status DC Clonidine HCl (Catapres) 0.1 mg PRN Q6HRS PRN PO SBP>160 OR DBP>90; Start 11/28/19 at 14:15 Docusate Sodium (Colace) 100 mg PRN BID PRN PO CONSTIPATION; Start 11/28/19 at 14:15 Albuterol Sulfate (Ventolin Neb Soln) 2.5 mg PRN Q4HRS PRN NEB SHORTNESS OF BREATH; Start 11/28/19 at 14:15 Guaifenesin (Robitussin) 200 mg PRN Q4HRS PRN PO COUGH; Start 11/28/19 at 14:15 Lorazepam (Ativan Inj) 2 mg PRN Q4HRS PRN IV ANXIETY / AGITATION Last a dministered on 11/29/19at 17:15; Start 11/28/19 at 14:15 Enoxaparin Sodium (Lovenox 40mg Syringe) 40 mg Q24H SQ Last administered on 11/29/19at 13:17; Start 11/28/19 at 14:15 Thiamine Mononitrate (Vitamin B-1) 100 mg 1X ONCE PO Last administered on 11/28/19at 14:27; Start 11/28/19 at 14:15; Stop 11/28/19 at 14:16; Status DC Levetiracetam 1000 mg/Dextrose 110 ml @ 440 mls/hr 1X ONCE IV Last administered on 11/28/19at 16:16; Start 11/28/19 at 14:15; Stop 11/28/19 at 14:32; Status DC Levetiracetam 1000 mg/Dextrose 110 ml @ 440 mls/hr Q12HR IV Last administered on 11/29/19at 10:27; Start 11/28/19 at 21:00 Ibuprofen (Motrin) 600 mg 1X ONCE PO Last administered on 11/28/19at 18:09; Start 11/28/19 at 17:30; Stop 11/28/19 at 17:31; Status DC Acetaminophen (Tylenol) 650 mg PRN Q4HRS PRN PO PAIN; Start 11/28/19 at 17:30 Vitals/I & O Vital Sign - Last 24 Hours 11/28/19 11/28/19 11/28/19 11/29/19 19:00 20:00 23:00 03:00 Temp 99.1 98.9 98.9 99.1 98.9 98.9 Pulse 87 80 81 Resp 22 22 19 B/P (MAP) 147/83 (104) 134/79 (97) 114/67 (83) Pulse Ox 97 96 95 O2 Delivery Room Air Room Air Room Air Room Air 11/29/19 11/29/19 11/29/19 11/29/19 07:15 08:15 11:20 15:29 Temp 98.2 98.0 97.5 98.2 98.0 97.5 Pulse 75 64 79 Resp 18 16 18 B/P (MAP) 123/73 (90) 110/61 (77) 105/62 (76) Pulse Ox 96 94 96 O2 Delivery Room Air Room Air Room Air Room Air Intake and Output 11/28/19 11/28/19 11/29/19 14:59 22:59 06:59 Intake Total 0 ml 0 ml Output Total 1 ml Balance -1 ml 0 ml RANI YBARRA MD November 29, 2019 18:08
[2019-11-29 19:00] VITALS: BP 122/75
[2019-11-29 23:00] VITALS: BP 126/70
[2019-11-30 04:04] VITALS: BP 135/78
[2019-11-30 07:00] VITALS: BP 124/69
--- NOTE | 2019-11-30 07:06 | EKG ---
[facility] [address] [place] [address] Test Date: 2019-11-28 Test Time: 11:43:29 Pat Name: NOHEMI MCKEON Department: Room: 2 Gender: M Route Clerk: : [id number] Requested By: EMMETT HAJI Order Number: [id number] Reading MD: Hermann Bishop Measurements Intervals [place] Rate: 117 P: 36 LA: 136 QRS: 38 QRSD: 86 T: 8 QT: 320 QTc: 451 Interpretive Statements SINUS TACHYCARDIA LEFT ATRIAL ABNORMALITY Electronically Signed On 11-30-2019 7:51:15 CDT by Hermann Bishop
--- NOTE | 2019-11-30 07:59 | RAD ---
EXAM: Head CT without contrast; maxillofacial bone CT without contrast; cervical spine CT without contrast. HISTORY: Trauma. TECHNIQUE: Computed tomographic images of the head, maxillofacial bones and cervical spine were obtained without contrast. *One or more of the following individualized dose reduction techniques were utilized for this examination: 1. Automated exposure control. 2. Adjustment of the mA and/or kV according to patient size. 3. Use of iterative reconstruction technique. COMPARISON: None. FINDINGS: Head: There is no acute intracranial hemorrhage. There is no mass effect or midline shift. There is no hydrocephalus. The rodriguez-white matter differential pattern is intact. The mastoid air cells are clear. No calvarial lesion is seen. Maxillofacial bones: No fracture is seen. There is minimal maxillary sinus mucosal thickening. The nasal septum is midline. The ostiomeatal units are patent. The temporomandibular joints are intact. The orbits are unremarkable. Cervical spine: There is cervical curvature likely due to thoracic scoliosis. There is no significant listhesis. There is mild multilevel endplate remodeling and slight disc space narrowing at the mid and lower cervical levels. There is facet arthropathy at multiple levels. There is no fracture. There is mild right foraminal stenosis at C3-C4 and C4-C5. There is moderate to severe right foraminal stenosis at C5-C6. IMPRESSION: 1. No evidence of acute intracranial, maxillofacial bone or cervical spine trauma. 2. Multilevel degenerative change involving the cervical spine, resulting in stenosis as described above. MTDD
--- NOTE | 2019-11-30 08:29 | PDOC ---
PROGRESS NOTES Chief Complaint Chief Complaint A/P: Acute metabolic encephalopathy Seizure disorder Leukocytosis most likely secondary to the above Postictal state High anion gap metabolic acidosis methamphetamine abuse BMI 31 Elevated lactic acid most likely secondary to acute seizure Hyperglycemia, reactive Acute kidney injury vasomotor nephropathy Right shoulder pain History of Present Illness History of Present Illness Mr Hanson is a 44yo M w/ PMHx seizures since he was 18 years old and methamphetamine abuse who presented with confusion and reported out of hospital seizures. He admits that he used methamphetamine 2 days prior to admit and stopped his Keppra. He is on Keppra monotherapy 500 mg twice a day for seizure prevention. He states he uses methamphetamine about once per month. He denies any alcohol or other recreational drugs. Loaded with 1000 mg of IV Keppra in the Emergency Room. On ROS does complain of headache and right shoulder pain. He denies being sick with a fever and no sick contacts, no COVID 19 contacts. WBC 19.7. The hemoglobin, hematocrit was normal, but platelet count was elevated at 442. Anion gap of 27. BUN was normal at 22, but creatinine was elevated at 1.6. Glucose was elevated at 193. TSH was normal. Lactic acid was elevated at 14.6. Urine drug screen was positive for methamphetamine. Phenytoin was not detected. Levetiracetam level is pending. A right shoulder x-ray was performed and revealed an ossific fragment along the inferior margin of the glenoid possibly a bony Bankart injury. Glenohumeral joint was congruent. No abnormal soft tissue calcification in the shoulder. 11/27: CT scan of the head and face revealed no evidence of an acute intracranial process or maxillofacial bone or cervical spine trauma. There were mild degenerative changes involving the cervical spine resulting in stenosis that is is only neural foraminal, not spinal cord. Shoulder x-ray with Bankart lesion (consistent with prior dislocation injury). Ossific fragment along the inferior margin of the glenoid, possibly a bony Bankart injury. Glenohumeral joint is congruent. 11/28: Confused, right shoulder pain, cannot move right arm, very lethargic still today, he was sleeping this AM until 11am and MD had to awaken him. Neuro following, will move keppra back to his home dosing, discharge limiter is he says he cannot move his right arm or walk Still with right shoulder pain. Confusion is improved. Still lethargic. States he cannot lift his right arm. Notes today that he does have Keppra at home he filled after being released from 1 year of incarceration, he states he did not take Keppra during his entire year of incarceration, but he also did not use methamphetamine while incarcerated. Vitals Vitals Vital Signs Date Time Temp Pulse Resp B/P (MAP) Pulse Ox O2 Delivery O2 Flow Rate FiO2 11/30/19 07:00 98.9 84 18 124/69 (87) 93 Room Air 98.9 Physical Exam Physical Exam cannot articulate his right shoulder, has decent right hand strength General: Alert, Oriented X3, Cooperative, mild distress Heart: Normal S2 Lungs: Wheezing Extremities: No cyanosis, No edema Assessment and Plan Assessmemt and Plan Problems Medical Problems: (1) Methamphetamine abuse Status: Acute (2) Seizure Status: Acute Comment Review of Relevant I have reviewed the following items mario (where applicable) has been applied. Labs Laboratory Tests Test 11/28/19 11:30 11/28/19 13:30 11/28/19 13:37 11/28/19 16:44 White Blood Count 19.7 x10^3/uL (4.0-11.0) Red Blood Count 5.67 x10^6/uL (4.30-5.70) Hemoglobin 17.1 g/dL (13.0-17.5) Hematocrit 50.9 % (39.0-53.0) Mean Corpuscular Volume 90 fL (79-100) Mean Corpuscular Hemoglobin 30 pg (25-35) Mean Corpuscular Hemoglobin Concent 34 g/dL (31-37) Red Cell Distribution Width 12.7 % (11.5-14.5) Platelet Count 442 x10^3/uL (140-400) Neutrophils (%) (Auto) 68 % (31-73) Lymphocytes (%) (Auto) 24 % (24-48) Monocytes (%) (Auto) 7 % (0-9) Eosinophils (%) (Auto) 1 % (0-3) Basophils (%) (Auto) 0 % (0-3) Neutrophils # (Auto) 13.3 x10^3/uL (1.8-7.7) Lymphocytes # (Auto) 4.7 x10^3/uL (1.0-4.8) Monocytes # (Auto) 1.4 x10^3/uL (0.0-1.1) Eosinophils # (Auto) 0.2 x10^3/uL (0.0-0.7) Basophils # (Auto) 0.1 x10^3/uL (0.0-0.2) Segmented Neutrophils % 71 % (35-66) Band Neutrophils % 2 % (0-9) Lymphocytes % 22 % (24-48) Monocytes % 5 % (0-10) Platelet Estimate Adequate (ADEQUATE) Prothrombin Time 13.9 SEC (11.7-14.0) Prothromb Time International Ratio 1.1 (0.8-1.1) Sodium Level 137 mmol/L (136-145) 137 mmol/L (136-145) Potassium Level 3.8 mmol/L (3.5-5.1) 4.4 mmol/L (3.5-5.1) Chloride Level 96 mmol/L (98-107) 102 mmol/L (98-107) Carbon Dioxide Level 14 mmol/L (21-32) 22 mmol/L (21-32) Anion Gap 27 (6-14) 13 (6-14) Blood Urea Nitrogen 22 mg/dL (8-26) 21 mg/dL (8-26) Creatinine 1.6 mg/dL (0.7-1.3) 1.2 mg/dL (0.7-1.3) Estimated GFR (Cockcroft-Gault) 47.6 66.4 BUN/Creatinine Ratio 14 (6-20) Glucose Level 193 mg/dL (70-99) 131 mg/dL (70-99) Calcium Level 9.5 mg/dL (8.5-10.1) 8.9 mg/dL (8.5-10.1) Magnesium Level 2.4 mg/dL (1.8-2.4) Total Bilirubin 0.7 mg/dL (0.2-1.0) Aspartate Amino Transf (AST/SGOT) 26 U/L (15-37) Alanine Aminotransferase (ALT/SGPT) 37 U/L (16-63) Alkaline Phosphatase 92 U/L (46-116) Creatine Kinase 242 U/L (39-308) Total Protein 8.3 g/dL (6.4-8.2) Albumin 4.3 g/dL (3.4-5.0) Albumin/Globulin Ratio 1.1 (1.0-1.7) Thyroid Stimulating Hormone (TSH) 3.658 uIU/mL (0.358-3.74) Phenytoin (Dilantin) Level 0.9 mcg/mL (10.0-20.0) Phenytoin Last Dose Date 11/28/19 Phenytoin Last Dose Time 0700 Ethyl Alcohol Level < 10 mg/dL (0-10) Urine Collection Type U cath Urine Color Yellow Urine Clarity Hazy Urine pH 5.5 (<5.0-8.0) Urine Specific [place] 1.025 (1.000-1.030) Urine Protein 30 mg/dL (NEG-TRACE) Urine Glucose (UA) Negative mg/dL (NEG) Urine Ketones (Stick) Trace mg/dL (NEG) Urine Blood Small (NEG) Urine Nitrite Negative (NEG) Urine Bilirubin Negative (NEG) Urine Urobilinogen Dipstick 0.2 mg/dL (0.2 mg/dL) Urine Leukocyte Esterase Negative (NEG) Urine RBC Occ /HPF (0-2) Urine WBC Occ /HPF (0-4) Urine Bacteria 0 /HPF (0-FEW) Urine Hyaline Casts Occasional /HPF Urine Mucus Marked /LPF Urine Opiates Screen Neg (NEG) Urine Methadone Screen Neg (NEG) Urine Barbiturates Neg (NEG) Urine Phencyclidine Screen Neg (NEG) Urine Amphetamine/Methamphetamine Pos (NEG) Urine Benzodiazepines Screen Neg (NEG) Urine Cocaine Screen Neg (NEG) Urine Cannabinoids Screen Neg (NEG) Urine Ethyl Alcohol Neg (NEG) Lactic Acid Level 14.6 mmol/L (0.4-2.0) Test 11/28/19 19:00 Lactic Acid Level 1.0 mmol/L (0.4-2.0) Medications Current Medications Ondansetron HCl (Zofran) 4 mg STK-MED ONCE .ROUTE ; Start 11/28/19 at 11:35; Stop 11/28/19 at 11:36; Status DC Sodium Chloride 1,000 ml @ 1,000 mls/hr 1X ONCE IV Last administered on 11/28/19at 11:56; Start 11/28/19 at 11:45; Stop 11/28/19 at 12:44; Status DC Ondansetron HCl (Zofran) 4 mg 1X ONCE IV Last administered on 11/28/19at 12:00; Start 11/28/19 at 12:00; Stop 11/28/19 at 12:01; Status DC Fentanyl Citrate (Fentanyl 2ml Vial) 50 mcg 1X ONCE IV Last administered on 11/28/19at 12:28; Start 11/28/19 at 12:15; Stop 11/28/19 at 12:16; Status DC Lorazepam (Ativan Inj) 2 mg STK-MED ONCE .ROUTE ; Start 11/28/19 at 13:18; Stop 11/28/19 at 13:18; Status DC Lorazepam (Ativan Inj) 2 mg 1X ONCE IV Last administered on 11/28/19at 13:19; Start 11/28/19 at 13:30; Stop 11/28/19 at 13:31; Status DC Lorazepam (Ativan Inj) 1 mg 1X ONCE IV ; Start 11/28/19 at 14:00; Stop 11/28/19 at 14:01; Status DC Fosphenytoin Sodium 2040 mg/ Sodium Chloride 90.8 ml @ 363.2 mls/ hr 1X ONCE IV ; Start 11/28/19 at 14:00; Stop 11/28/19 at 14:14; Status DC Multivitamins 10 ml/Folic Acid 1 mg/Sodium Chloride 1,010.2 ml @ 124.874 mls/hr 1X ONCE IV Last administered on 11/28/19at 16:18; Start 11/28/19 at 14:15; Stop 11/28/19 at 22:20; Status DC Ondansetron HCl (Zofran) 4 mg PRN Q4HRS PRN IV NAUSEA/VOMITING; Start 11/28/19 at 14:15 Zolpidem Tartrate (Ambien) 5 mg PRN QHS PRN PO INSOMNIA; Start 11/28/19 at 14:15 Acetaminophen (Tylenol) 650 mg PRN Q4HRS PRN PO TEMP OVER 100.4F OR MILD PAIN; Start 11/28/19 at 14:15; Stop 11/28/19 at 17:25; Status DC Clonidine HCl (Catapres) 0.1 mg PRN Q6HRS PRN PO SBP>160 OR DBP>90; Start 11/28/19 at 14:15 Docusate Sodium (Colace) 100 mg PRN BID PRN PO CONSTIPATION; Start 11/28/19 at 14:15 Albuterol Sulfate (Ventolin Neb Soln) 2.5 mg PRN Q4HRS PRN NEB SHORTNESS OF BREATH; Start 11/28/19 at 14:15 Guaifenesin (Robitussin) 200 mg PRN Q4HRS PRN PO COUGH; Start 11/28/19 at 14:15 Lorazepam (Ativan Inj) 2 mg PRN Q4HRS PRN IV ANXIETY / AGITATION Last administered on 11/29/19at 17:15; Start 11/28/19 at 14:15 Enoxaparin Sodium (Lovenox 40mg Syringe) 40 mg Q24H SQ Last administered on 11/29/19at 13:17; Start 11/28/19 at 14:15 Thiamine Mononitrate (Vitamin B-1) 100 mg 1X ONCE PO Last administered on 11/28/19at 14:27; Start 11/28/19 at 14:15; Stop 11/28/19 at 14:16; Status DC Levetiracetam 1000 mg/Dextrose 110 ml @ 440 mls/hr 1X ONCE IV Last administered on 11/28/19at 16:16; Start 11/28/19 at 14:15; Stop 11/28/19 at 14:32; Status DC Levetiracetam 1000 mg/Dextrose 110 ml @ 440 mls/hr Q12HR IV Last administered on 11/29/19at 21:21; Start 11/28/19 at 21:00 Ibuprofen (Motrin) 600 mg 1X ONCE PO Last administered on 11/28/19at 18:09; Start 11/28/19 at 17:30; Stop 11/28/19 at 17:31; Status DC Acetaminophen (Tylenol) 650 mg PRN Q4HRS PRN PO PAIN; Start 11/28/19 at 17:30 Vitals/I & O Vital Sign - Last 24 Hours 11/29/19 11/29/19 11/29/19 11/29/19 11:20 15:29 19:00 19:54 Temp 98.0 97.5 98.5 98.0 97.5 98.5 Pulse 64 79 98 Resp 16 18 18 B/P (MAP) 110/61 (77) 105/62 (76) 122/75 (91) Pulse Ox 94 96 95 O2 Delivery Room Air Room Air Room Air Room Air 11/29/19 11/30/19 11/30/19 23:00 04:04 07:00 Temp 98.6 99.1 98.9 98.6 99.1 98.9 Pulse 100 86 84 Resp 20 18 18 B/P (MAP) 126/70 (88) 135/78 (97) 124/69 (87) Pulse Ox 96 96 93 O2 Delivery Room Air Room Air Room Air Intake and Output 11/29/19 11/29/19 11/30/19 15:00 23:00 07:00 Intake Total 350 ml 300 ml 120 ml Output Total 1 ml 1 ml Balance 349 ml 299 ml 120 ml JONO COBB MD November 30, 2019 08:29
[2019-11-30] MEDS ORDERED: KETOROLAC 15 MG/ML VIAL. IVP PRN (08:30)
[2019-11-30] MEDS: levETIRAcetam 500 MG TABLET PO SCH ×2 (10:08→20:39)
[2019-11-30 11:45] VITALS: BP 123/66
--- NOTE | 2019-11-30 15:35 | NUR ---
SS following for discharge planning. SS reviewed pt chart and discussed with pt RN. Pt is self pay pt. Pt was living in [facility] prior to admission. Pt is currently on room air and PT/OT recommended home. Pt stating that he will discharge to home with brother in law. SS will continue to follow for discharge planning.
[2019-11-30 15:59] VITALS: BP 127/70
--- NOTE | 2019-11-30 17:09 | PDOC ---
PROGRESS NOTES Assessment Assessment IMPRESSION: Seizure. Amphetamine use/abuse. Degenerative spine disease. RECOMMENDATIONS/PLAN: Continue Keppra 500 mg bid. Treat medical diseases. See Ortho or NS as outpatient for moderate to severe spine degenerative disease. SUBJECTIVE: No seizures. OBJECTIVE: No focalized neurological deficits. PAST MEDICAL AND SURGICAL HISTORY: Seizure disorder from 18 years of age. Methamphetamine abuse. ALLERGIES: No known allergies to drugs. MEDICATIONS PRIOR TO ADMISSION: Levetiracetam 500 mg twice per day. FAMILY HISTORY: He denies any diseases in his family. SOCIAL HISTORY: He is , but . He lives alone. He has children. He works for [email or web address]. He denies alcohol consumption. He does admit to methamphetamine usage. He denies other recreational drugs. REVIEW OF SYSTEMS: He does have headache. He often has headaches after seizures. He denies any change in vision or hearing. He is not aware of any cognitive loss. He has been eating and swallowing. He has not had shortness of breath, cough or cold. He has not had chest or abdominal pain. He has severe right shoulder pain. He has not had fever or rash. Denies any gastrointestinal or genitourinary complaint. Does not complain of numbness or focal weakness. Denies any psychiatric concerns. Please see H&P MEDICATIONS: Refer to MAR PHYSICAL EXAMINATION: General appearance in no acute distress. HEENT: Normocephalic and nontraumatic. Eyes, nose, ears, and throat are unremarkable. Hearing decrease. Neck is supple. No lymphadenopathy. No bruits are heard over the carotid artery. No Crepitus. Cardiovascular: S1, S2, regular rate and rhythm. Pulmonary: Clear to auscultation bilaterally. Abdomen: Bowel sounds are positive. Extremities: No rash, lesions, or edema. No restriction of range of motion NEUROLOGICAL EXAMINATION: Alert. Oriented to time, place and person. PERRL. EOMI. CN: no focal findings. Muscle tone: within normal. Muscle strength: 5 DTR: 2 Plantar reflex: Flexor response bilaterally Gait: At baseline normal. Sensory exam: no abnormal findings. No cerebellar signs elicited. F-T-N test fine. Objective Objective Vital Signs Date Time Temp Pulse Resp B/P (MAP) Pulse Ox O2 Delivery O2 Flow Rate FiO2 11/30/19 15:59 98.1 87 18 127/70 (89) 97 Room Air 98.1 l Intake and Output 11/30/19 07:00 Intake Total 770 ml Output Total 2 ml Balance 768 ml Intake Oral 670 ml IV Total 100 ml Output Urine Total 2 ml # Voids 2 Vitals Signs Vitals VS - Last 72 Hours, by Label Date Time Temp Pulse Resp B/P (MAP) Pulse Ox O2 Delivery O2 Flow Rate FiO2 11/30/19 15:59 98.1 87 18 127/70 (89) 97 Room Air 98.1 11/30/19 11:45 98.0 85 18 123/66 (85) 96 Room Air 98.0 11/30/19 08:00 Room Air 11/30/19 07:00 98.9 84 18 124/69 (87) 93 Room Air 98.9 11/30/19 04:04 99.1 86 18 135/78 (97) 96 Room Air 99.1 11/29/19 23:00 98.6 100 20 126/70 (88) 96 Room Air 98.6 11/29/19 19:54 Room Air 11/29/19 19:00 98.5 98 18 122/75 (91) 95 Room Air 98.5 11/29/19 15:29 97.5 79 18 105/62 (76) 96 Room Air 97.5 11/29/19 11:20 98.0 64 16 110/61 (77) 94 Room Air 98.0 11/29/19 08:15 Room Air 11/29/19 07:15 98.2 75 18 123/73 (90) 96 Room Air 98.2 Medication Medications Current Medications Ketorolac Tromethamine (Toradol 15mg Vial) 15 mg PRN Q6HRS PRN IVP PAIN Last administered on 11/30/19at 10:20; Start 11/30/19 at 08:30; Stop 12/05/19 at 08:29 Levetiracetam (Keppra) 500 mg BID PO Last administered on 11/30/19at 10:08; Sta rt 11/30/19 at 09:00 Comment Review of Relevant I have reviewed the following items mario (where applicable) has been applied. DEX POLLACK MD November 30, 2019 17:09
[2019-11-30] MEDS: ENOXAPARIN 40 MG/0.4 ML SYRINGE. SQ SCH (18:36)
[2019-11-30 19:58] VITALS: BP 142/77
[2019-11-30] MEDS: ACETAMINOPHEN 325 MG TABLET. PO PRN (20:40)
[2019-11-30 23:53] VITALS: BP 140/82
[2019-12-01 03:35] VITALS: BP 128/57
[2019-12-01 07:00] VITALS: BP 125/70
[2019-12-01] MEDS: levETIRAcetam 500 MG TABLET PO SCH (08:27)
[2019-12-01] MEDS: ACETAMINOPHEN 325 MG TABLET. PO PRN (08:27)
[2019-12-01] MEDS ORDERED: LEVE500T56 PO (10:16)
--- NOTE | 2019-12-01 10:19 | PDOC ---
PROGRESS NOTES Chief Complaint Chief Complaint A/P: Acute metabolic encephalopathy Seizure disorder Leukocytosis most likely secondary to the above Postictal state High anion gap metabolic acidosis methamphetamine abuse BMI 31 Elevated lactic acid most likely secondary to acute seizure Hyperglycemia, reactive Acute kidney injury vasomotor nephropathy Right shoulder pain History of Present Illness History of Present Illness Mr Hanson is a 44yo M w/ PMHx seizures since he was 18 years old and methamphetamine abuse who presented with confusion and reported out of hospital seizures. He admits that he used methamphetamine 2 days prior to admit and stopped his Keppra. He is on Keppra monotherapy 500 mg twice a day for seizure prevention. He states he uses methamphetamine about once per month. He denies any alcohol or other recreational drugs. Loaded with 1000 mg of IV Keppra in the Emergency Room. On ROS does complain of headache and right shoulder pain. He denies being sick with a fever and no sick contacts, no COVID 19 contacts. WBC 19.7. The hemoglobin, hematocrit was normal, but platelet count was elevated at 442. Anion gap of 27. BUN was normal at 22, but creatinine was elevated at 1.6. Glucose was elevated at 193. TSH was normal. Lactic acid was elevated at 14.6. Urine drug screen was positive for methamphetamine. Phenytoin was not detected. Levetiracetam level is pending. A right shoulder x-ray was performed and revealed an ossific fragment along the inferior margin of the glenoid possibly a bony Bankart injury. Glenohumeral joint was congruent. No abnormal soft tissue calcification in the shoulder. 11/27: CT scan of the head and face revealed no evidence of an acute intracranial process or maxillofacial bone or cervical spine trauma. There were mild degenerative changes involving the cervical spine resulting in stenosis that is is only neural foraminal, not spinal cord. Shoulder x-ray with Bankart lesion (consistent with prior dislocation injury). Ossific fragment along the inferior margin of the glenoid, possibly a bony Bankart injury. Glenohumeral joint is congruent. 11/28: Confused, right shoulder pain, cannot move right arm, very lethargic still today, he was sleeping this AM until 11am and MD had to awaken him. Neuro following, will move keppra back to his home dosing, discharge limiter is he says he cannot move his right arm or walk 5/11: Still with right shoulder pain. Confusion is improved. Still lethargic. States he cannot lift his right arm. Notes today that he does have Keppra at home he filled after being released from 1 year of incarceration, he states he did not take Keppra during his entire year of incarceration, but he also did not use methamphetamine while incarcerated. Overnight no events. Still with some right shoulder weakness and pain. No SOB or CP. D/w orthopedic surgery that an MRI to confirm a injury to his rotator cuff muscles would be appropriate, patient is amenable to this but would prefer to defer to outpatient in the next couple of months when he will be eligible for health insurance at his workplace as he would not be able to undergo surgery due to to cost limitations even if the results of the MRI do show a partial or complete tear, therefore he will be given instructions for rotator cuff tear follow-up, looks as though teres minor and supraspinatus may be the involved muscles. No further seizures in-house, afebrile otherwise Vitals Vitals Vital Signs Date Time Temp Pulse Resp B/P (MAP) Pulse Ox O2 Delivery O2 Flow Rate FiO2 12/01/19 07:00 98.0 67 17 125/70 (88) 96 Room Air 98.0 Physical Exam Physical Exam cannot articulate his right shoulder, has decent right hand strength General: Alert, Oriented X3, Cooperative, mild distress Heart: Normal S2 Lungs: Wheezing Extremities: No cyanosis, No edema Assessment and Plan Assessmemt and Plan Problems Medical Problems: (1) Methamphetamine abuse Status: Acute (2) Seizure Status: Acute Comment Review of Relevant I have reviewed the following items mario (where applicable) has been applied. Medications Current Medications Ondansetron HCl (Zofran) 4 mg STK-MED ONCE .ROUTE ; Start 11/28/19 at 11:35; Stop 11/28/19 at 11:36; Status DC Sodium Chloride 1,000 ml @ 1,000 mls/hr 1X ONCE IV Last administered on 11/28/19at 11:56; Start 11/28/19 at 11:45; Stop 11/28/19 at 12:44; Status DC Ondansetron HCl (Zofran) 4 mg 1X ONCE IV Last administered on 11/28/19at 12:00; Start 11/28/19 at 12:00; Stop 11/28/19 at 12:01; Status DC Fentanyl Citrate (Fentanyl 2ml Vial) 50 mcg 1X ONCE IV Last administered on 11/28/19at 12:28; Start 11/28/19 at 12:15; Stop 11/28/19 at 12:16; Status DC Lorazepam (Ativan Inj) 2 mg STK-MED ONCE .ROUTE ; Start 11/28/19 at 13:18; Stop 11/28/19 at 13:18; Status DC Lorazepam (Ativan Inj) 2 mg 1X ONCE IV Last administered on 11/28/19at 13:19; Start 11/28/19 at 13:30; Stop 11/28/19 at 13:31; Status DC Lorazepam (Ativan Inj) 1 mg 1X ONCE IV ; Start 11/28/19 at 14:00; Stop 11/28/19 at 14:01; Status DC Fosphenytoin Sodium 2040 mg/ Sodium Chloride 90.8 ml @ 363.2 mls/ hr 1X ONCE IV ; Start 11/28/19 at 14:00; Stop 11/28/19 at 14:14; Status DC Multivitamins 10 ml/Folic Acid 1 mg/Sodium Chloride 1,010.2 ml @ 124.874 mls/hr 1X ONCE IV Last administered on 11/28/19at 16:18; Start 11/28/19 at 14:15; Stop 11/28/19 at 22:20; Status DC Ondansetron HCl (Zofran) 4 mg PRN Q4HRS PRN IV NAUSEA/VOMITING; Start 11/28/19 at 14:15 Zolpidem Tartrate (Ambien) 5 mg PRN QHS PRN PO INSOMNIA; Start 11/28/19 at 14:15; Stop 11/30/19 at 08:24; Status DC Acetaminophen (Tylenol) 650 mg PRN Q4HRS PRN PO TEMP OVER 100.4F OR MILD PAIN; Start 11/28/19 at 14:15; Stop 11/28/19 at 17:25; Status DC Clonidine HCl (Catapres) 0.1 mg PRN Q6HRS PRN PO SBP>160 OR DBP>90; Start 11/28/19 at 14:15 Docusate Sodium (Colace) 100 mg PRN BID PRN PO CONSTIPATION; Start 11/28/19 at 14:15 Albuterol Sulfate (Ventolin Neb Soln) 2.5 mg PRN Q4HRS PRN NEB SHORTNESS OF BREATH; Start 11/28/19 at 14:15 Guaifenesin (Robitussin) 200 mg PRN Q4HRS PRN PO COUGH; Start 11/28/19 at 14:15 Lorazepam (Ativan Inj) 2 mg PRN Q4HRS PRN IV SEIZURE ONLY Last administered on 11/29/19at 17:15; Start 11/28/19 at 14:15 Enoxaparin Sodium (Lovenox 40mg Syringe) 40 mg Q24H SQ Last administered on 11/30/19at 18:36; Start 11/28/19 at 14:15 Thiamine Mononitrate (Vitamin B-1) 100 mg 1X ONCE PO Last administered on 11/28/19at 14:27; Start 11/28/19 at 14:15; Stop 11/28/19 at 14:16; Status DC Levetiracetam 1000 mg/Dextrose 110 ml @ 440 mls/hr 1X ONCE IV Last administered on 11/28/19at 16:16; Start 11/28/19 at 14:15; Stop 11/28/19 at 14:32; Status DC Levetiracetam 1000 mg/Dextrose 110 ml @ 440 mls/hr Q12HR IV Last administered on 11/29/19at 21:21; Start 11/28/19 at 21:00; Stop 11/30/19 at 08:24; Status DC Ibuprofen (Motrin) 600 mg 1X ONCE PO Last administered on 11/28/19at 18:09; Start 11/28/19 at 17:30; Stop 11/28/19 at 17:31; Status DC Acetaminophen (Tylenol) 650 mg PRN Q4HRS PRN PO PAIN Last administered on 12/01/19at 08:27; Start 11/28/19 at 17:30 Levetiracetam (Keppra) 500 mg BID PO Last administered on 12/01/19at 08:27; Start 11/30/19 at 09:00 Ketorolac Tromethamine (Toradol 15mg Vial) 15 mg PRN Q6HRS PRN IVP PAIN Last administered on 11/30/19at 10:20; Start 11/30/19 at 08:30; Stop 12/05/19 at 08:29 Active Scripts Active Keppra (Levetiracetam) 500 Mg Tablet 500 Mg PO BID 30 Days Vitals/I & O Vital Sign - Last 24 Hours 11/30/19 11/30/19 11/30/19 11/30/19 11:45 15:59 19:58 20:00 Temp 98.0 98.1 98.2 98.0 98.1 98.2 Pulse 85 87 90 Resp 18 18 16 B/P (MAP) 123/66 (85) 127/70 (89) 142/77 (98) Pulse Ox 96 97 95 O2 Delivery Room Air Room Air Room Air Room Air 11/30/19 12/01/19 12/01/19 23:53 03:35 07:00 Temp 98.6 98.3 98.0 98.6 98.3 98.0 Pulse 88 72 67 Resp 16 16 17 B/P (MAP) 140/82 (101) 128/57 (80) 125/70 (88) Pulse Ox 93 93 96 O2 Delivery Room Air Room Air Room Air Intake and Output 11/30/19 11/30/19 12/01/19 15:00 23:00 07:00 Intake Total 0 ml 300 ml 1000 ml Balance 0 ml 300 ml 1000 ml JONO COBB MD December 01, 2019 10:19
[2019-12-01 11:00] VITALS: BP 134/77
--- NOTE | 2019-12-01 11:42 | PDOC3 ---
Discharge Summary Visit Information Date of Admission: November 28, 2019 Date of Discharge: December 01, 2019 Admitting Diagnosis: Seizure Final Diagnosis Problems Medical Problems: (1) Methamphetamine abuse Status: Acute (2) Seizure Status: Acute Brief Hospital Course Allergies Allergies Coded Allergies Type Severity Reaction Last Updated Verified No Known Drug Allergies 11/28/19 No Vital Signs Vital Signs Date Time Temp Pulse Resp B/P (MAP) Pulse Ox O2 Delivery O2 Flow Rate FiO2 12/01/19 08:00 Room Air 12/01/19 07:00 98.0 67 17 125/70 (88) 96 98.0 Brief Hospital Course Mr Hanson is a 44yo M w/ PMHx seizures since he was 18 years old and me thamphetamine abuse who presented with confusion and reported out of hospital seizures. He admits that he used methamphetamine 2 days prior to admit and stopped his Keppra. He is on Keppra monotherapy 500 mg twice a day for seizure prevention. He states he uses methamphetamine about once per month. He denies any alcohol or other recreational drugs. Loaded with 1000 mg of IV Keppra in the Emergency Room. On ROS does complain of headache and right shoulder pain. He denies being sick with a fever and no sick contacts, no COVID 19 contacts. WBC 19.7. The hemoglobin, hematocrit was normal, but platelet count was elevated at 442. Anion gap of 27. BUN was normal at 22, but creatinine was elevated at 1.6. Glucose was elevated at 193. TSH was normal. Lactic acid was elevated at 14.6. Urine drug screen was positive for methamphetamine. Phenytoin was not detected. Levetiracetam level is pending. A right shoulder x-ray was performed and revealed an ossific fragment along the inferior margin of the glenoid possibly a bony Bankart injury. Glenohumeral joint was congruent. No abnormal soft tissue calcification in the shoulder. 11/27: CT scan of the head and face revealed no evidence of an acute intracranial process or maxillofacial bone or cervical spine trauma. There were mild degenerative changes involving the cervical spine resulting in stenosis that is is only neural foraminal, not spinal cord. Shoulder x-ray with Bankart lesion (consistent with prior dislocation injury). Ossific fragment along the inferior margin of the glenoid, possibly a bony Bankart injury. Glenohumeral joint is congruent. 11/28: Confused, right shoulder pain, cannot move right arm, very lethargic still today, he was sleeping this AM until 11am and MD had to awaken him. Neuro following, will move keppra back to his home dosing, discharge limiter is he says he cannot move his right arm or walk 11/29: Still with right shoulder pain. Confusion is improved. Still lethargic. States he cannot lift his right arm. Notes today that he does have Keppra at home he filled after being released from 1 year of incarceration, he states he did not take Keppra during his entire year of incarceration, but he also did not use methamphetamine while incarcerated. Overnight no events. Still with some right shoulder weakness and pain. No SOB or CP. D/w orthopedic surgery that an MRI to confirm a injury to his rotator cuff muscles would be appropriate, patient is amenable to this but would prefer to defer to outpatient in the next couple of months when he will be eligible for health insurance at his workplace as he would not be able to undergo surgery due to to cost limitations even if the results of the MRI do show a partial or complete tear, therefore he will be given instructions for rotator cuff tear follow-up, looks as though teres minor and supraspinatus may be the involved muscles. No further seizures in-house, afebrile otherwise Problem list: Acute metabolic encephalopathy Seizure disorder Leukocytosis most likely secondary to the above Postictal state High anion gap metabolic acidosis methamphetamine abuse BMI 31 Elevated lactic acid most likely secondary to acute seizure Hyperglycemia, reactive Acute kidney injury vasomotor nephropathy Right shoulder pain Greater than 30 minutes spent on d/c Discharge Information Condition at Discharge: Improved Follow Up: Weeks Disposition/Orders: D/C to Home Scheduled Levetiracetam (Keppra) 500 Mg Tablet, 500 MG PO BID for Seizures for 30 Days, #60 Ref 2 Prescribed by: JONO COBB MD on 12/01/19 1016 JONO COBB MD December 01, 2019 11:42
--- NOTE | 2019-12-01 14:02 | CONS ---
DATE OF CONSULTATION: 11/30/2019 ORTHOPEDIC CONSULT REQUESTING PHYSICIAN: Omar Gayle MD REASON FOR CONSULTATION: Right shoulder pain. HISTORY OF PRESENT ILLNESS: The patient is a 44-year-old male with a history of seizure disorder who has had some seizures, occasionally in the past due to noncompliance with his medications and apparently stopped his normal seizure medication along with some recent methamphetamine use a couple of days prior to admission. He was apparently staying in a motel and felt a seizure coming on, lost consciousness and fell on his face and right side and although on initial presentation, did not complain of shoulder pain, now tells me that he has had right shoulder pain ever since the seizure episode and fall. Further he reports no previous difficulties with his right shoulder. PAST MEDICAL HISTORY: Significant for the seizure disorder. PAST SURGICAL HISTORY: He denies any past surgical history. MEDICATIONS: Include Keppra twice daily. ALLERGIES: He has no known drug allergies. FAMILY HISTORY: Denies any family history. SOCIAL HISTORY: , , lives alone and works at a local convenience store. Denies current smoking or alcohol use, but does occasionally use drugs and indicates recent methamphetamine usage, which he uses occasionally. REVIEW OF SYSTEMS: Significant for right shoulder pain; some headaches, which are frequent after he is postictal. Denies any neck or back pain, visual changes, focal weakness, numbness, tingling; just weak in the shoulder secondary to pain. Has no lower extremity pain or difficulty walking. PHYSICAL EXAMINATION: This is a 44-year-old male. He is somewhat sleepy, but arouses and is examined in his hospital bed. He has some pain on any attempt at extremes of even passive range of motion of his right shoulder. Active range of motion is very limited secondary to pain. There is no gross instability on some gentle internal and external rotation and forward elevation, abduction up to about 90 degrees. There is no scapular winging present. He has normal examination of the contralateral left shoulder, bilateral elbows and wrists with overall intact motor function, distal pulses, sensation in both upper and lower extremities throughout. IMAGING: X-rays of the right shoulder show a calcific type density, slightly inferior to the glenohumeral joint. X-ray interpretation was possibly a bony Bankart injury; however, the glenohumeral joint remains congruent. IMPRESSION: 1. Seizure secondary to noncompliance with medications. 2. Methamphetamine use. 3. Right shoulder pain status post fall and calcific density inferiorly. TREATMENT PLAN: I went over with him the possible treatment alternatives for his shoulder. I had gone over the possibility of a CT scan to further evaluate what may be going on with his glenohumeral joint. It does not appear to be dislocated, but it is possible that either there is some calcification from previous injury or bony fragment that could affect the stability of his shoulder. I told him we could get additional imaging to determine a treatment plan. He was pretty adamant about nonoperative management in any case and I told him that at this point, we could probably then hold off on the CT scan. Based on that, we did talk about the possibility of additional instability or this bone not healing up if it is an acute fracture and causing some instability. Nevertheless, if he wants to put off any type of surgical consideration, the further workup could be conducted later based on his preference. He stated that that's the way he wants to proceed and any further imaging would be based on his change in considering the possibility of other treatment alternatives. At this point, he just wants to recover from the seizure issues and revisit this on a followup visit. As a result, he can have a sling or other symptomatic treatment for the shoulder in the interim and I would encourage really minimal weightbearing as symptomatically tolerated. MELISA INGRAM MD DR: ABHISHEK/pilar JOB#: [id number] / [id number]
--- NOTE | 2019-12-01 14:03 | PDOC2 ---
CONSULT Date of Consult Date of Consult DATE: 12/01/19 TIME: 12:50 Reason for Consult Reason for Consult: Right shoulder injury Referring Physician Referring Physician: Bing Identification/Chief Complaint Chief Complaint Right shoulder pain Source Source: Chart review, Patient History of Present Illness Reason for Visit: Patient is a 44-year-old gentleman admitted for a seizure. He has a known seizure disorder normally maintained on Keppra, he had not been taking this recently, he has used methamphetamines as well and this is led to a couple of se izures in the past couple weeks he tells me. He does not remember further details. He has had a known seizure disorder for many years but has not had any for quite some time. He was admitted for care regarding his seizure and noted that he had difficulty with shoulder pain and moving his shoulder and I was asked to see him in consultation. He currently complains of diffuse right shoulder pain, worse with any movement of his elbow away from his body. It is a little bit better at rest. The pain does not radiate. He has no prior history of shoulder complaints or shoulder injuries. He does not remember exactly what happened to his shoulder to trigger this pain. Past Medical History CENTRAL NERVOUS SYSTEM: Seizure Social History No ALCOHOL: occassional Drugs: Other Lives: Alone Current Problem List Problem List Problems Medical Problems: (1) Methamphetamine abuse Status: Acute (2) Seizure Status: Acute Current Medications Current Medications Current Medications Ondansetron HCl (Zofran) 4 mg STK-MED ONCE .ROUTE ; Start 11/28/19 at 11:35; Stop 11/28/19 at 11:36; Status DC Sodium Chloride 1,000 ml @ 1,000 mls/hr 1X ONCE IV Last administered on 11/28/19at 11:56; Start 11/28/19 at 11:45; Stop 11/28/19 at 12:44; Status DC Ondansetron HCl (Zofran) 4 mg 1X ONCE IV Last administered on 11/28/19at 12:00; Start 11/28/19 at 12:00; Stop 11/28/19 at 12:01; Status DC Fentanyl Citrate (Fentanyl 2ml Vial) 50 mcg 1X ONCE IV Last administered on 11/28/19at 12:28; Start 11/28/19 at 12:15; Stop 11/28/19 at 12:16; Status DC Lorazepam (Ativan Inj) 2 mg STK-MED ONCE .ROUTE ; Start 11/28/19 at 13:18; Stop 11/28/19 at 13:18; Status DC Lorazepam (Ativan Inj) 2 mg 1X ONCE IV Last administered on 11/28/19at 13:19; Start 11/28/19 at 13:30; Stop 11/28/19 at 13:31; Status DC Lorazepam (Ativan Inj) 1 mg 1X ONCE IV ; Start 11/28/19 at 14:00; Stop 11/28/19 a t 14:01; Status DC Fosphenytoin Sodium 2040 mg/ Sodium Chloride 90.8 ml @ 363.2 mls/ hr 1X ONCE IV ; Start 11/28/19 at 14:00; Stop 11/28/19 at 14:14; Status DC Multivitamins 10 ml/Folic Acid 1 mg/Sodium Chloride 1,010.2 ml @ 124.874 mls/hr 1X ONCE IV Last administered on 11/28/19at 16:18; Start 11/28/19 at 14:15; Stop 11/28/19 at 22:20; Status DC Ondansetron HCl (Zofran) 4 mg PRN Q4HRS PRN IV NAUSEA/VOMITING; Start 11/28/19 at 14:15 Zolpidem Tartrate (Ambien) 5 mg PRN QHS PRN PO INSOMNIA; Start 11/28/19 at 14:15; Stop 11/30/19 at 08:24; Status DC Acetaminophen (Tylenol) 650 mg PRN Q4HRS PRN PO TEMP OVER 100.4F OR MILD PAIN; Start 11/28/19 at 14:15; Stop 11/28/19 at 17:25; Status DC Clonidine HCl (Catapres) 0.1 mg PRN Q6HRS PRN PO SBP>160 OR DBP>90; Start 11/28/19 at 14:15 Docusate Sodium (Colace) 100 mg PRN BID PRN PO CONSTIPATION; Start 11/28/19 at 14:15 Albuterol Sulfate (Ventolin Neb Soln) 2.5 mg PRN Q4HRS PRN NEB SHORTNESS OF BREATH; Start 11/28/19 at 14:15 Guaifenesin (Robitussin) 200 mg PRN Q4HRS PRN PO COUGH; Start 11/28/19 at 14:15 Lorazepam (Ativan Inj) 2 mg PRN Q4HRS PRN IV SEIZURE ONLY Last administered on 11/29/19 17:15; Start 11/28/19 at 14:15 Enoxaparin Sodium (Lovenox 40mg Syringe) 40 mg Q24H SQ Last administered on 11/30/19at 18:36; Start 11/28/19 at 14:15 Thiamine Mononitrate (Vitamin B-1) 100 mg 1X ONCE PO Last administered on 11/28/19at 14:27; Start 11/28/19 at 14:15; Stop 11/28/19 at 14:16; Status DC Levetiracetam 1000 mg/Dextrose 110 ml @ 440 mls/hr 1X ONCE IV Last administered on 11/28/19at 16:16; Start 11/28/19 at 14:15; Stop 11/28/19 at 14:32; Status DC Levetiracetam 1000 mg/Dextrose 110 ml @ 440 mls/hr Q12HR IV Last administered on 11/29/19at 21:21; Start 11/28/19 at 21:00; Stop 11/30/19 at 08:24; Status DC Ibuprofen (Motrin) 600 mg 1X ONCE PO Last administered on 11/28/19at 18:09; Start 11/28/19 at 17:30; Stop 11/28/19 at 17:31; Status DC Acetaminophen (Tylenol) 650 mg PRN Q4HRS PRN PO PAIN Last administered on 12/01/19 08:27; Start 11/28/19 at 17:30 Levetiracetam (Keppra) 500 mg BID PO Last administered on 12/01/19at 08:27; Start 11/30/19 at 09:00 Ketorolac Tromethamine (Toradol 15mg Vial) 15 mg PRN Q6HRS PRN IVP PAIN Last administered on 11/30/19at 10:20; Start 11/30/19 at 08:30; Stop 12/05/19 at 08:29 Active Scripts Active Keppra (Levetiracetam) 500 Mg Tablet 500 Mg PO BID 30 Days Allergies Allergies: Coded Allergies: No Known Drug Allergies (Unverified , 11/28/19) ROS General: No: Chills, Night Sweats, Fatigue, Malaise, Appetite, Other PSYCHOLOGICAL ROS: No: Anxiety, Behavioral Disorder, Concentration difficultie, Decreased libido, Depression, Disorientation, Hallucinations, Hostility, Irritablity, Memory difficulties, Mood Swings, Obsessive thoughts, Physical abuse, Sexual abuse, Sleep disturbances, Suicidal ideation, Other Eyes: No Blurry vision, No Decreased vision, No Double vision, No Dry eyes, No Excessive tearing, No Eye Pain, No Itchy Eyes, No Loss of vision, No Photophobia, No Scotomata, No Uses contacts, No Uses glasses, No Other HEENT: No: Heacaches, Visual Changes, Hearing change, Nasal congestion, Nasal discharge, Oral lesions, Sinus pain, Sore Throat, Epistaxis, Sneezing, Snoring, Tinnitus, Vertigo, Vocal changes, Other ALLERGY AND IMMUNOLOGY: No: Hives, Insect Bite Sensitivity, Itchy/Watery Eyes, Nasal Congestion, Post Nasal Drip, Seasonal Allergies, Other Hematological and Lymphatic: No: Bleeding Problems, Blood Clots, Blood Transfusions, Brusing, Night Sweats, Pallor, Swollen Lymph Nodes, Other ENDOCRINE: No: Breast Changes, Galactorrhea, Hair Pattern Changes, Hot Flashes, Malaise/lethargy, Mood Swings, Palpitations, Polydipsia/polyuria, Skin Changes, Temperature Intolerance, Unexpected Weight Changes, Other Respiratory: No: Cough, Hemoptysis, Orthopnea, Pleuritic Pain, Shortness of breath, SOB with excertion, Sputum Changes, Stridor, Tachypnea, Wheezing, Other Cardiovascular: No Chest Pain, No Palpitations, No Orthopnea, No Paroxysmal Noc. Dyspnea, No Edema, No Lt Headedness, No Other Gastrointestinal: No Nausea, No Vomiting, No Abdominal Pain, No Diarrhea, No Constipation, No Melena, No Hematochezia, No Other Genitourinary: No Dysuria, No Frequency, No Incontinence, No Hematuria, No Retention, No Discharge, No Urgency, No Pain, No Flank Pain, No Other, No , No , No , No , No , No , No Musculoskeletal: Yes Joint Pain, Yes Joint Stiffness Neurological: No Behavorial Changes, No Bowel/Bladder ControlChng, No Confusion, No Dizziness, No Gait Disturbance, No Headaches, No Impaired Coord/balance, No Memory Loss, No Numbness/Tingling, No Seizures, No Speech Problems, No Tremors, No Visual Changes, No Weakness, No Other Skin: No Dry Skin, No Eczema, No Hair Changes, No Lumps, No Mole Changes, No Mottling, No Nail Changes, No Pruritus, No Rash, No Skin Lesion Changes, No Other, No Acne Physical Exam General: Alert, Oriented X3 HEENT: Atraumatic, EOMI Lungs: Other (Respirations unlabored with symmetric chest rise) Heart: Regular rate Abdomen: Soft, No tenderness Extremities: No edema, Normal pulses Neuro: Normal speech, Strength at 5/5 X4 ext, Sensation intact Psych/Mental Status: Mental status NL, Mood NL MUSCULOSKELETAL: Other (Examination of his bilateral upper extremities reveals no obvious atrophy. Normal motor and sensation in his hands. Forward elevation is 180 on the left, 60 on the right, abduction is 30 on the right, external rotation is 45 on the left and 20 on the right. Internal rotation is low lumbar on the left and buttock on the right. Passive range of motion assessment limited by pain and guarding. He does offer good resistance with rotator cuff strength testing, but again this is limited by pain and guarding in his participation. Negative belly press, unable to assess liftoff. Remainder of exam declined by patient due to pain.) Vitals VITALS Vital Signs Date Time Temp Pulse Resp B/P (MAP) Pulse Ox O2 Delivery O2 Flow Rate FiO2 12/01/19 11:00 97.8 71 18 134/77 (96) 94 Room Air 97.8 Images Images Shoulder x-rays from 11/28/2019 were interpreted by myself. Report was reviewed. Likely bony Bankart injury Assessment/Plan Assessment/Plan Given his history of seizure, the x-ray findings, I do think dislocation is on my differential diagnosis, he may have also injured his rotator cuff it is quite difficult to say with certainty given my limitations in being able to examine him. Even with a full physical exam, I still would like to get an MRI to further appreciate his injury pattern, he can get that and then be discharged home with outpatient follow-up. I did discuss this with the hospitalist. TERA BONILLA II, MD December 01, 2019 14:03
[2019-12-01 15:00] VITALS: BP 131/77
[2019-12-01] MEDS: ENOXAPARIN 40 MG/0.4 ML SYRINGE. SQ SCH (15:13)
--- NOTE | 2019-12-01 16:45 | PDOC ---
PROGRESS NOTES Assessment Problems Medical Problems: (1) Methamphetamine abuse Status: Acute (2) Seizure Status: Acute Epilepsy Amphetamine use/abuse. Degenerative spine disease. Plan Continue Keppra 500 mg bid. Treat medical diseases. Can see Ortho or NS as outpatient for moderate to severe spine degenerative disease. Subjective no complaints, wants to leave Objective Vital Signs Date Time Temp Pulse Resp B/P (MAP) Pulse Ox O2 Delivery O2 Flow Rate FiO2 12/01/19 14:24 95 Room Air 12/01/19 11:00 97.8 71 18 134/77 (96) 97.8 Intake and Output 12/01/19 07:00 Intake Total 1300 ml Balance 1300 ml Intake Oral 1300 ml PHYSICAL EXAM Alert. Oriented to time, place and person. PERRL. EOMI. CN: no focal findings. Muscle tone: normal. Muscle strength: 5/5 DTR: 2+ Plantar reflex: flexor Gait: not examined in bed. Sensory exam: no abnormal findings. No cerebellar signs elicited. Review of Relevant I have reviewed the following items mario (where applicable) has been applied. Medications Current Medications Ondansetron HCl (Zofran) 4 mg STK-MED ONCE .ROUTE ; Start 11/28/19 at 11:35; Stop 11/28/19 at 11:36; Status DC Sodium Chloride 1,000 ml @ 1,000 mls/hr 1X ONCE IV Last administered on 11/28/19at 11:56; Start 11/28/19 at 11:45; Stop 11/28/19 at 12:44; Status DC Ondansetron HCl (Zofran) 4 mg 1X ONCE IV Last administered on 11/28/19at 12:00; Start 11/28/19 at 12:00; Stop 11/28/19 at 12:01; Status DC Fentanyl Citrate (Fentanyl 2ml Vial) 50 mcg 1X ONCE IV Last administered on 11/28/19at 12:28; Start 11/28/19 at 12:15; Stop 11/28/19 at 12:16; Status DC Lorazepam (Ativan Inj) 2 mg STK-MED ONCE .ROUTE ; Start 11/28/19 at 13:18; Stop 11/28/19 at 13:18; Status DC Lorazepam (Ativan Inj) 2 mg 1X ONCE IV Last administered on 11/28/19at 13:19; Start 11/28/19 at 13:30; Stop 11/28/19 at 13:31; Status DC Lorazepam (Ativan Inj) 1 mg 1X ONCE IV ; Start 11/28/19 at 14:00; Stop 11/28/19 at 14:01; Status DC Fosphenytoin Sodium 2040 mg/ Sodium Chloride 90.8 ml @ 363.2 mls/ hr 1X ONCE IV ; Start 11/28/19 at 14:00; Stop 11/28/19 at 14:14; Status DC Multivitamins 10 ml/Folic Acid 1 mg/Sodium Chloride 1,010.2 ml @ 124.874 mls/hr 1X ONCE IV Last administered on 11/28/19at 16:18; Start 11/28/19 at 14:15; Stop 11/28/19 at 22:20; Status DC Ondansetron HCl (Zofran) 4 mg PRN Q4HRS PRN IV NAUSEA/VOMITING; Start 11/28/19 at 14:15 Zolpidem Tartrate (Ambien) 5 mg PRN QHS PRN PO INSOMNIA; Start 11/28/19 at 14:15; Stop 11/30/19 at 08:24; Status DC Acetaminophen (Tylenol) 650 mg PRN Q4HRS PRN PO TEMP OVER 100.4F OR MILD PAIN; Start 11/28/19 at 14:15; Stop 11/28/19 at 17:25; Status DC Clonidine HCl (Catapres) 0.1 mg PRN Q6HRS PRN PO SBP>160 OR DBP>90; Start 11/28/19 at 14:15 Docusate Sodium (Colace) 100 mg PRN BID PRN PO CONSTIPATION; Start 11/28/19 at 14:15 Albuterol Sulfate (Ventolin Neb Soln) 2.5 mg PRN Q4HRS PRN NEB SHORTNESS OF BREATH; Start 11/28/19 at 14:15 Guaifenesin (Robitussin) 200 mg PRN Q4HRS PRN PO COUGH; Start 11/28/19 at 14:15 Lorazepam (Ativan Inj) 2 mg PRN Q4HRS PRN IV SEIZURE ONLY Last administered on 11/29/19at 17:15; Start 11/28/19 at 14:15 Enoxaparin Sodium (Lovenox 40mg Syringe) 40 mg Q24H SQ Last administered on 12/01/19at 15:13; Start 11/28/19 at 14:15 Thiamine Mononitrate (Vitamin B-1) 100 mg 1X ONCE PO Last administered on 11/28/19at 14:27; Start 11/28/19 at 14:15; Stop 11/28/19 at 14:16; Status DC Levetiracetam 1000 mg/Dextrose 110 ml @ 440 mls/hr 1X ONCE IV Last administered on 11/28/19at 16:16; Start 11/28/19 at 14:15; Stop 11/28/19 at 14:32; Status DC Levetiracetam 1000 mg/Dextrose 110 ml @ 440 mls/hr Q12HR IV Last administered on 11/29/19at 21:21; Start 11/28/19 at 21:00; Stop 11/30/19 at 08:24; Status DC Ibuprofen (Motrin) 600 mg 1X ONCE PO Last administered on 11/28/19at 18:09; Start 11/28/19 at 17:30; Stop 11/28/19 at 17:31; Status DC Acetaminophen (Tylenol) 650 mg PRN Q4HRS PRN PO PAIN Last administered on 11/19 09/10at 08:27; Start 11/28/19 at 17:30 Levetiracetam (Keppra) 500 mg BID PO Last administered on 12/01/19at 08:27; Start 11/30/19 at 09:00 Ketorolac Tromethamine (Toradol 15mg Vial) 15 mg PRN Q6HRS PRN IVP PAIN Last administered on 11/30/19at 10:20; Start 11/30/19 at 08:30; Stop 12/05/19 at 08:29 Active Scripts Active Keppra (Levetiracetam) 500 Mg Tablet 500 Mg PO BID 30 Days Vitals/I & O Vital Sign - Last 24 Hours 11/30/19 11/30/19 11/30/19 12/01/19 19:58 20:00 23:53 03:35 Temp 98.2 98.6 98.3 98.2 98.6 98.3 Pulse 90 88 72 Resp 16 16 16 B/P (MAP) 142/77 (98) 140/82 (101) 128/57 (80) Pulse Ox 95 93 93 O2 Delivery Room Air Room Air Room Air Room Air 12/01/19 12/01/19 12/01/19 12/01/19 07:00 08:00 11:00 14:24 Temp 98.0 97.8 98.0 97.8 Pulse 67 71 Resp 17 18 B/P (MAP) 125/70 (88) 134/77 (96) Pulse Ox 96 94 95 O2 Delivery Room Air Room Air Room Air Room Air Intake and Output 11/30/19 11/30/19 12/01/19 15:00 23:00 07:00 Intake Total 0 ml 300 ml 1000 ml Balance 0 ml 300 ml 1000 ml KRISTY MERCADO MD December 01, 2019 16:45
--- NOTE | 2019-12-01 17:25 | NUR ---
PT DISCHARGED TO HOME WITH SISTER. DISCHARGE INSTRUCTIONS REVIEWED AND QUESTIONS ANSWERED. PHONE NUMBERS GIVEN FOR BOTH NEUROLOGIST AND ORTHO.
== END 2019-12-01 17:25 | disposition home or self-care (01) | DRG 100 ==
LOC: ER 11:25 → 6 SOUTH 14:16
PROVIDERS: ADMIT Internal Medicine; ATTEND Internal Medicine
DX: G40.409 Other generalized epilepsy and epileptic syndromes, not intractable, without status epilepticus (principal); N17.0 Acute kidney failure with tubular necrosis; E87.2 Acidosis; F15.10 Other stimulant abuse, uncomplicated; M47.812 Spondylosis without myelopathy or radiculopathy, cervical region; D72.829 Elevated white blood cell count, unspecified; M25.511 Pain in right shoulder; R73.9 Hyperglycemia, unspecified; W18.30XA Fall on same level, unspecified, initial encounter; Z91.14 Patient's other noncompliance with medication regimen; Z79.899 Other long term (current) drug therapy; Y93.89 Activity, other specified; Z91.19 Patient's noncompliance with other medical treatment and regimen; Y92.89 Other specified places as the place of occurrence of the external cause; Y99.8 Other external cause status
CPT/HCPCS: 36415; 70450; 70486; 72125; 73030; 80048; 80053; 80177; 80185; 80307; 81001; 82550; 83605; 83735; 84443; 85007; 85025; 85610; 93005; G0480; J1650; J1885; J1953; J2060; J2405; J3010; J3490; J7030; J7060; 97116-GP; 97535-GO; G0378